=== PATIENT | female | born 1945 | race Caucasian/White ===

== ENCOUNTER 2017-04-12 11:41 | Inpatient (IN) | payer SELFPAY ==
[2017-04-12 12:13] LABS: #Eosinphils 0.1 thou/uL (0.0-0.7); #Lymphocytes 0.8 thou/uL (1.20-3.40); #Monocytes 0.6 thou/uL (0.11-0.59); #Neutrophils 14.5 thou/uL (1.40-6.50); %Basophils 0.2 % (0.0-1.0); %Eosinophils 0.5 % (0.0-10.0); %Lymphocytes 4.9 % (21.0-51.0); %Monocytes 3.7 % (0.0-10.0); Hematocrit 34.2 % (36.0-47.0); Mean Platelet Volume 5.5 fL (7.4-10.4); Red Blood Cell (RBC) Count 3.76 mill/uL (4.20-5.40)
--- NOTE | 2017-04-12 12:29 | RAD ---
CHEST ONE VIEW: HISTORY: Desaturation. COMPARISON: None. FINDINGS: Heart size is enlarged. There are opacities in both lung bases. Increased pericardial fat. Multiple foci of cement within the upper thoracic spine. No large pneumothorax. IMPRESSION: 1. Cardiomegaly with left lower lobe air space opacities, representing infection or atelectasis moiz mariola scarring. 2. Multiple areas of cement in the upper thoracic spine. POS: [facility]
[2017-04-12 12:30] LABS: ALT (SGPT) 16 U/L (8-55); AST (SGOT) 23 U/L (5-34); Alkaline Phosphatase 71 U/L (40-150); BUN (Urea Nitrogen) 11 mg/dL (9.8-20.1); Bilirubin, Total 0.6 mg/dL (0.2-1.2); CK (CPK) 72 U/L (29-168); Calc. Creatinine Clearance 0 mL/min (70-130); Estimated GFR-MDRD 78; Globulin 3.2 g/dL (2.4-3.5); Protein, Total 7.4 g/dL (6.0-8.3)
[2017-04-12 12:35] LABS: Troponin I 0.018 ng/mL (< 0.028)
[2017-04-12 12:40] LABS: Anion Gap 22 mmol/L (10-20); Carbon Dioxide 35 mmol/L (23-31); Chloride 84 mmol/L (98-107)
[2017-04-12] MEDS ORDERED: Vancomycin HCl 1 GM in Premix Bag 1 BAG IVPB SCH (13:00)
[2017-04-12 13:14] LABS: Lactic Acid - Sepsis 2.1 mmol/L (0.5-2.2)
[2017-04-12] MEDS ORDERED: Diabetic Tussin 200 MG/10 ML UDCUP PO PRN (16:44)
[2017-04-12] MEDS ORDERED: Ondansetron HCl/PF 4 MG/2 ML Vial IVP PRN (16:44)
[2017-04-12] MEDS ORDERED: Artificial Tear Sol 15 ML BOT EA EYE PRN (16:44)
[2017-04-12] MEDS ORDERED: Multivitamin W/ Minerals 1 TAB PO PRN (16:44)
[2017-04-12] MEDS ORDERED: Loperamide HCl 2 MG CAP PO PRN (16:44)
[2017-04-12] MEDS ORDERED: cloNIDine HCl 0.1 MG TAB PO PRN (16:44)
[2017-04-12] MEDS ORDERED: Zolpidem Tartrate 5 MG TAB PO PRN (16:44)
[2017-04-12] MEDS ORDERED: Ondansetron ODT 4 MG TAB PO PRN (16:44)
[2017-04-12] MEDS ORDERED: Benzonatate 100 MG CAP PO PRN (16:44)
[2017-04-12] MEDS ORDERED: Sodium Chloride 0.65% Nasal 44 ML BOT EA NARE PRN (16:44)
[2017-04-12] MEDS ORDERED: Milk Of Magnesia 30 ML UDCUP PO PRN (16:44)
[2017-04-12] MEDS ORDERED: Loratadine 10 MG TAB PO PRN (16:44)
[2017-04-12] MEDS ORDERED: Eucerin (Mineral Oil/Petrolatum,White) 30 gm Jar TOP PRN (16:44)
[2017-04-12] MEDS ORDERED: HYDROcodone/Acetaminophen 5/325 mg Tablet PO PRN (16:44)
[2017-04-12] MEDS ORDERED: Senokot 8.6 MG TAB PO PRN (16:44)
[2017-04-12] MEDS ORDERED: Sodium Chloride 0.9% 1,000 ML IV SCH (16:44)
[2017-04-12] MEDS ORDERED: Mag-Al 1200 mg/1200 mg/30 ML UDCUP PO PRN (16:44)
[2017-04-12] MEDS ORDERED: Lorazepam 1 MG TAB PO PRN (16:44)
[2017-04-12 16:46] VITALS: BMI 30.1
--- NOTE | 2017-04-12 16:55 | HP ---
PRIMARY CARE PHYSICIAN: Patient is recently moved from [facility] to the [facility] and she recently admitted appointment with Dr. Gely Malloy. REASON FOR ADMISSION: Sent from Dr. Wolff's office for hypoxic respiratory failure. HISTORY OF PRESENT ILLNESS: A 72-year-old female who has chronic respiratory failure requiring 2-3 liters of oxygen nasal cannula 14/02 as well as she has advanced chronic obstructive pulmonary diseas e, who had a regular followup visit with Dr. Wolff in Dr. Wolff's office when the patient was ta ing. At that time, her oxygen saturation was dropping below normal and that is why Dr. Wolff ad vised her to go to the emergency room for evaluation. This patient reports that after walking 15 steps, she gets out of breath. The patient also reports that whenever she do a little exertion her oxygen saturation drops, especially whenever she walks, a t that time she is not breathing through nose and her oxygen saturation drops. She is gradually get ting worse every year. The patient's granddaughter is present who also witnessed that patient's con dition is declining from last year. She was living in [facility] by herself and her condition was getting worse and that is why she has recently moved to her granddaughter's place. The patient reports that about 2-3 weeks ago, she was diagnosed with new mass in her lung and she di d not have any biopsy to be done and the patient made appointment with casting wheel operator helper to establish ca re as well as to do a lung biopsy. She does have chronic dyspnea. She does have chronic productive cough. She does have chronic physical deconditioning. Her lowest oxygen saturation today low was 62% and she was having labored breathing today and that is why Dr. Wolff advised her to go to the emergency room for evaluation. Patient denies any fever. She denies any hemoptysis. She denies any hip, chest pain, palpitation o r dizziness. She does have chronic tremor. 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 At that time, IV steroid makes her jittery and she cannot sleep. REVIEW OF SYSTEMS: The following complete review of systems was negative, unless otherwise mentione d in the HPI or below: CONSTITUTIONAL: Weight loss or gain, ability to conduct usual activities. SKIN: Rash, itching. EYES: Double vision, pain. ENT/MOUTH: Nose bleeding, neck stiffness, pain, tenderness. CARDIOVASCULAR: Palpitations, dyspnea on exertion, orthopnea. RESPIRATORY: Shortness of breath, wheezing, cough, hemoptysis, fever or night sweats. GASTROINTESTINAL: Poor appetite, abdominal pain, heartburn, nausea, vomiting, constipation, or diar sharifa. GENITOURINARY: Urgency, frequency, dysuria, nocturia. MUSCULOSKELETAL: Pain, swelling. NEUROLOGIC/PSYCHIATRIC: Anxiety, depression. ALLERGY/IMMUNOLOGIC: Skin rash, bleeding tendency. Please see my HPI for pertinent positives and negatives. All other review of system reviewed and ne gative except as mentioned in the HPI. PAST MEDICAL HISTORY: Coronary artery disease with angioplasty, end-stage COPD, steroid dependent, chronic respiratory failure on home oxygen therapy, hypertension, dyslipidemia, physical decondition ing, osteoarthritis and new diagnosis of lung mass. PAST PSYCHIATRIC HISTORY: Anxiety and depression. PAST SURGICAL HISTORY: Bladder suspension, back surgery, cataract surgery, appendicectomy. SOCIAL HISTORY: Patient is single. She was originally from [facility] and she recently moved to the [facility] with her granddaughter. She smoked about 1 pack per day for 40 y ears. She quit smoking about 9 years ago. She denies any alcohol abuse. She denies any other illi cit drug abuse. FAMILY HISTORY: No strong family history of premature coronary artery disease, stroke or cancer. ALLERGIES: PENICILLIN. CURRENT HOME MEDICATIONS: Aspirin 81 mg p.o. daily, Cardizem CD 240 mg p.o. daily, clonazepam 0.5 m g 3 times daily as needed, losartan 100 mg p.o. daily, Crestor 10 mg p.o. daily, DuoNeb as needed ba sis, hydrochlorothiazide 25 mg p.o. daily, potassium chloride 10 mEq p.o. daily, prednisone 20 mg p. o. daily, tramadol 50 mg q.6 hourly p.r.n., Advair 2 inhalation b.i.d., Flonase nasal spray daily. EMERGENCY ROOM COURSE: Patient is given vancomycin and cefepime. PHYSICAL EXAMINATION: VITAL SIGNS: On arrival, blood pressure 158/64, pulse 104, respiratory rate 26, temperature 98.4, s aturation 93% on 2 liter oxygen and 67% on room air. Weight is 70.3 kilograms. GENERAL: The patient is chronically ill, no obvious acute distress. HEAD: Normocephalic, atraumatic. EYES: Pupils round, reactive to light. Extraocular muscles intact. ENT: Oropharynx within normal limits. Moist mucous membranes. No oral lesions. No pharyngeal carlo thema, no exudates. NECK: Supple. Range of motion is normal. No meningeal signs of irritation. LUNGS: Bilateral end expiratory wheezing with coarse rales noted. CARDIAC: S1, S2 regular, systolic murmur noted. No gallop, no rub. ABDOMEN: Obesity present. Bowel sounds present. Nontender, nondistended. No organomegaly, no mas s, no suprapubic tenderness. BACK: No CVA tenderness. EXTREMITIES: Upper extremity: Passive movement of all joints are normal. Lower extremities: Bila teral lower extremity edema noted. NEUROLOGIC: Patient is moving all 4 limbs. Speech normal, no focal neurological deficit noted. Mo tor and sensation within normal limits. No cerebellar sign. SKIN: The patient does have multiple bruits. Patient has very thin skin. PSYCHIATRIC: Anxious affect. SIGNIFICANT LABS: 1. EKG based on my review, sinus tachycardia. Chest x-ray based on my review, cardiomegaly with le ft lower lobe airspace opacity consistent with infection versus atelectasis versus scaring. Patient does have multiple compression fracture of the thoracic spine. 2. CBC: WBC 16.0, hemoglobin 10.9, platelets 495 with a left shift. BMP: Sodium 136, potassium 4 .5, chloride 84, carbon dioxide 35, anion gap 22, BUN 11, creatinine 0.73, glucose 157, calcium 10.0 . Lactic acid 2.1. 3. BMP: AST 23, ALT 16, alkaline phosphatase 71. CK 72, CK-MB 3.2, troponin I 0.018. BNP 23.5, t otal protein 7.4, albumin 4.2. ASSESSMENT AND PLAN/IMPRESSION: 1. Acute on chronic respiratory failure with hypoxia with hypercarbia. At this point, we will try to keep oxygen saturation between 88-90%. We will continue with oxygen to keep that range. We will avoid high flow oxygen to prevent CO2 retention. The patient's underlying respiratory failure is r elated with end-stage chronic obstructive pulmonary disease. 2. Chronic obstructive pulmonary disease exacerbation with acute bronchitis and pneumonia. The pat ient will be treated with DuoNeb therapy q.6 hourly and as needed basis, Dulera 2 puffs inhalation b .i.d., Solu-Medrol 40 mg IV q.6 hourly, empiric antibiotic therapy with cefepime 2 grams q.12 hourly , Levaquin 500 mg IV daily. Patient has received vancomycin dose in the emergency room. We will al so continue Mucinex 600 mg twice daily. 3. Anxiety and depression. We will continue clonazepam 0.5 mg p.o. t.i.d. 4. Hypertension. Currently, patient's blood pressure runs normal. Only, we will continue Cardizem CD 240 mg p.o. daily. Rest of blood pressure medication will be on hold. 5. Left lower lobe atelectasis versus pneumonia versus scar. This patient reports that she has new scar on the left lower lobe. It is unclear whether this is a new finding or old finding, but she d oes have leukocytosis. At this point, we will treat as if pneumonia and we will consult pulmonologi st while in hospital. We will treat with cefepime and Levaquin while in hospital, Mucinex 600 mg tw ice daily. Further investigation will defer to casting wheel operator helper. 6. Anemia, normocytic, normochromic. We will continue ferrous sulfate 325 mg p.o. daily and multiv itamin 1 tablet p.o. daily. 7. Deep venous thrombosis prophylaxis. Lovenox 40 mg subQ daily. 8. Gastrointestinal prophylaxis, Protonix 40 mg p.o. daily. CODE STATUS: I spoke with the patient and patient's granddaughter at bedside in the emergency room and confirmed code status, DNR. Patient does not want any kind of heroic measures in case of cardio pulmonary arrest. I will respect her wish and we will put a DNR order in hospital. Disposition plan based on clinical course, we are expecting patient's stay in hospital more than 2 m idnights. Plan of care discussed with the patient and patient's granddaughter at bedside.
[2017-04-12] MEDS: Mometasone/Formoterol 120 PUFF INHALER INH SCH (17:59)
[2017-04-12 18:30] LABS: Bilirubin Negative (Negative); Blood, Urine Negative (Negative); Glucose, Urine (Dipstick) 250 mg/dL (Negative); Ketone, Urine Negative (Negative); Nitrite Negative (Negative); Protein, Urine (Dipstick) Negative (Neg-Trace); Urobilinogen 0.2 mg/dL (0.2-1.0)
[2017-04-12 18:32] LABS: Bacteria/HPF None Seen HPF (None Seen); Hyaline Casts/LPF 0-3 HYALINE CAST LPF (0-3 Hyaline); Squamous Epithelial None Seen HPF (0-3); WBC/HPF None Seen HPF (0-3)
[2017-04-12] MEDS: guaiFENesin ER 600 MG TAB PO SCH (20:23)
[2017-04-12] MEDS: clonazePAM 0.5 MG TAB PO SCH (20:24)
[2017-04-12] MEDS: Cefepime 2 GM in Sodium Chloride 0.9% 100 ML IVPB SCH (20:24)
[2017-04-13] MEDS: Sodium Chloride 3% (15 ML) NEB NEB SCH ×3 (03:19→19:39)
[2017-04-13 05:32] LABS: #Lymphocytes 0.5 thou/uL (1.20-3.40); #Monocytes 0.2 thou/uL (0.11-0.59); %Eosinophils 0.1 % (0.0-10.0); %Monocytes 2.1 % (0.0-10.0); Hematocrit 30.9 % (36.0-47.0); Mean Platelet Volume 5.3 fL (7.4-10.4); Red Blood Cell (RBC) Count 3.39 mill/uL (4.20-5.40); White Blood Cell (WBC) Count 8.7 thou/uL (4.8-10.8)
[2017-04-13 05:52] LABS: ALT (SGPT) 12 U/L (8-55); AST (SGOT) 15 U/L (5-34); Alkaline Phosphatase 58 U/L (40-150); Anion Gap 14 mmol/L (10-20); BUN (Urea Nitrogen) 10 mg/dL (9.8-20.1); Bilirubin, Total 0.5 mg/dL (0.2-1.2); Calc. Creatinine Clearance 89 mL/min (70-130); Calcium 9.2 mg/dL (7.8-10.44); Carbon Dioxide 36 mmol/L (23-31); Chloride 89 mmol/L (98-107); Estimated GFR-MDRD Greater than 90; Globulin 2.6 g/dL (2.4-3.5); Protein, Total 6.3 g/dL (6.0-8.3)
[2017-04-13] MEDS: Mometasone/Formoterol 120 PUFF INHALER INH SCH ×2 (06:29→19:38)
[2017-04-13] MEDS: Cefepime 2 GM in Sodium Chloride 0.9% 100 ML IVPB SCH ×2 (08:13→20:11)
[2017-04-13] MEDS: Ferrous Sulfate 325 MG TAB PO SCH (08:14)
[2017-04-13] MEDS: clonazePAM 0.5 MG TAB PO SCH ×3 (08:14→20:11)
[2017-04-13] MEDS: guaiFENesin ER 600 MG TAB PO SCH ×2 (08:14→20:11)
[2017-04-13] MEDS: Enoxaparin Sodium 30 MG/0.3 ML SYRINGE SC SCH (08:14)
[2017-04-13 09:29] LABS: Oxyhemoglobin 92.5 % (94.0-97.0); Sodium 135 mmol/L (135-148)
[2017-04-13 09:31] LABS: Mode 3LNC; Modified Allen's Test POSITIVE; Vent NO
--- NOTE | 2017-04-13 12:51 | PDOC.PN ---
- Subjective Encounter Start Date: 04/13/17 Encounter Start Time: 09:00 -: old records requested/rev Patient seen and examined. No new complaints. No overnight events, still dyspnea - Objective Resuscitation Status: Resuscitation Status DNR:Do Not Resuscitate MAR Reviewed: Yes Vital Signs & Weight: Vital Signs (12 hours) Temp Pulse Resp BP BP Pulse Ox Pulse Ox 04/13/17 11:17 97.9 F 92 24 H 106/60 96 04/13/17 09:56 98 22 H 95 04/13/17 09:54 98 22 H 95 04/13/17 08:14 91 123/75 04/13/17 08:12 83 L 04/13/17 08:00 98.2 F 91 22 H 95 04/13/17 07:33 98.2 F 91 22 H 123/75 95 04/13/17 06:31 97 04/13/17 06:29 88 20 97 04/13/17 04:07 97.8 F 103 H 20 135/61 93 L 04/13/17 03:20 93 L Pulse Ox Pulse Ox Pulse Ox 04/13/17 11:17 04/13/17 09:56 04/13/17 09:54 04/13/17 08:14 04/13/17 08:12 92 L 71 L 87 L 04/13/17 08:00 04/13/17 07:33 04/13/17 06:31 04/13/17 06:29 04/13/17 04:07 04/13/17 03:20 Weight Weight 154 lb 5.177 oz I&O: 04/12/17 04/13/17 04/14/17 06:59 06:59 06:59 Intake Total 1697 Balance 1697 Result Diagrams: 04/13/17 04:41 04/13/17 04:41 Phys Exam - Physical Examination Constitutional: NAD HEENT: PERRLA, moist MMs, sclera anicteric Neck: no JVD, supple Respiratory: no wheezing, no rhonchi scattered rales, reduced air entry Cardiovascular: RRR, no significant murmur, no rub Gastrointestinal: soft, non-tender, no distention, positive bowel sounds Musculoskeletal: no edema, pulses present Neurological: non-focal, normal sensation Psychiatric: normal affect Skin: no rash, normal turgor Dx/Plan (1) Acute on chronic respiratory failure with hypoxia and hypercapnia Code(s): J96.21 - ACUTE AND CHRONIC RESPIRATORY FAILURE WITH HYPOXIA; J96.22 - ACUTE AND CHRONIC RESPIRATORY FAILURE WITH HYPERCAPNIA Status: Acute (2) COPD (chronic obstructive pulmonary disease) Status: Acute (3) Left lower lobe pneumonia Code(s): J18.1 - LOBAR PNEUMONIA, UNSPECIFIED ORGANISM Status: Acute (4) Anemia, normocytic normochromic Code(s): D64.9 - ANEMIA, UNSPECIFIED Status: Chronic (5) Anxiety and depression Code(s): F41.8 - OTHER SPECIFIED ANXIETY DISORDERS Status: Chronic (6) Dyslipidemia Code(s): E78.5 - HYPERLIPIDEMIA, UNSPECIFIED Status: Chronic (7) Hypertension Code(s): I10 - ESSENTIAL (PRIMARY) HYPERTENSION Status: Chronic (8) Obesity (BMI 30.0-34.9) Code(s): E66.9 - OBESITY, UNSPECIFIED Status: Chronic (9) Physical deconditioning Code(s): R53.81 - OTHER MALAISE Status: Chronic (10) Dementia Code(s): F03.90 - UNSPECIFIED DEMENTIA WITHOUT BEHAVIORAL DISTURBANCE Status: Chronic - Plan cont current plan of care, plan discussed w/ family, continue antibiotics, respiratory therapy * continue cefepime and levaquin * continue solumedrol * currently on optimum therapy for copd * pulmonary following * medication reviewed as below * symptomatic treatment. Review of Systems - Review of Systems Constitutional: Weakness. negative: Fever, Chills, Sweats, Malaise, Other Respiratory: Cough, Shortness of Breath, SOB with Excertion. negative: Dry, Hemoptysis, Pleuritic Pain, Sputum, Wheezing Cardiovascular: negative: Chest Pain, Palpitations, Orthopnea, Paroxysmal Noc. Dyspnea, Edema, Light Headedness, Other Gastrointestinal: negative: Nausea, Vomiting, Abdominal Pain, Diarrhea, Constipation, Melena, Hematochezia, Other Genitourinary: negative: Dysuria, Frequency, Incontinence, Hematuria, Retention , Other Musculoskeletal: negative: Neck Pain, Shoulder Pain, Arm Pain, Back Pain, Hand Pain, Leg Pain, Foot Pain, Other Skin: negative: Rash, Lesions, Jey, Bruising, Other - Medications/Allergies Allergies/Adverse Reactions: Allergies Allergy/AdvReac Type Severity Reaction Status Date / Time Penicillins Allergy Verified 04/12/17 12:56 Medications: Current Medications Acetaminophen (Tylenol) 650 mg PO Q4H PRN PRN Reason: Headache/Fever or Pain Hydrocodone Bitart/Acetaminophen ([place] 5/325) 1 tab PO Q4H PRN PRN Reason: Moderate Pain (4-6) Al Hydroxide/Mg Hydroxide (Maalox) 30 ml PO Q6H PRN PRN Reason: Heartburn or Indigestion Albuterol/Ipratropium (Duoneb) 3 ml NEB [id number] [facility] Last Admin: 04/13/17 10:18 Dose: 3 ml Artificial Tears (Tears Renewed 15ml Bottle) 0 drop EA EYE PRN PRN PRN Reason: Dry Eyes Clonazepam (Klonopin) 0.5 mg PO TID [facility] Last Admin: 04/13/17 08:14 Dose: 0.5 mg Clonidine HCl (Catapres) 0.1 mg PO Q4H PRN PRN Reason: Systolic BP > 180 Diltiazem HCl (Cardizem Cd) 240 mg PO DAILY [facility] Last Admin: 04/13/17 08:14 Dose: 240 mg Enoxaparin Sodium (Lovenox) 30 mg SC 0900 [facility] Last Admin: 04/13/17 08:14 Dose: 30 mg Ferrous Sulfate (Feosol) 325 mg PO QAM-WM [facility] Last Admin: 04/13/17 08:14 Dose: 325 mg Guaifenesin (Mucinex) 600 mg PO Q12HR [facility] Last Admin: 04/13/17 08:14 Dose: 600 mg Hydralazine HCl (Apresoline) 10 mg SLOW IVP Q4H PRN PRN Reason: Systolic BP > 180 Cefepime HCl 2 gm/ Sodium (Chloride) 100 mls @ 200 mls/hr IVPB Q12HR [facility] Last Admin: 04/13/17 08:13 Dose: 100 mls Levofloxacin 500 mg/ Device 100 mls @ 100 mls/hr IVPB 1800 [facility] Last Admin: 04/12/17 17:20 Dose: 100 mls Iron/Minerals/Multivitamins (Theragran M) 1 tab PO DAILY PRN PRN Reason: Anxiety/Restlessness/Sleep Loperamide HCl (Imodium) 2 mg PO PRN PRN PRN Reason: Diarrhea/Loose Stools Loratadine (Claritin) 10 mg PO DAILYPRN PRN PRN Reason: Sinus Symptoms Magnesium Hydroxide (Milk Of Magnesium) 30 ml PO DAILYPRN PRN PRN Reason: Constipation Methylprednisolone Sodium Succinate (Solu-Medrol) 40 mg IVP DAILY [facility] Last Admin: 04/13/17 08:14 Dose: 40 mg Mineral Oil/White Petrolatum (Eucerin Cream) 0 gm TOP BIDPRN PRN PRN Reason: Dry Skin Mometasone Furoate/Formoterol Fumar (Dulera 200 Mcg/5 Mcg Inhaler) 2 puff INH BID-RT [facility] Last Admin: 04/13/17 06:29 Dose: 2 puff Ondansetron HCl (Zofran Odt) 4 mg PO Q6H PRN PRN Reason: Nausea/Vomiting Ondansetron HCl (Zofran) 4 mg IVP Q6H PRN PRN Reason: Nausea/Vomiting Rosuvastatin Calcium (Crestor) 10 mg PO HS [facility] Last Admin: 04/12/17 20:23 Dose: 10 mg Senna (Senokot) 2 tab PO HSPRN PRN PRN Reason: Constipation Sodium Chloride (White Shield Nasal Eleanor 0.65%) 0 ml EA NARE QIDPRN PRN PRN Reason: Nasal Congestion Sodium Chloride (Sodium Chloride 3%) 15 ml NEB BID [facility] Last Admin: 04/13/17 09:54 Dose: 15 ml
[2017-04-13] MEDS: Acetaminophen 325 MG TAB PO PRN ×2 (14:32→18:26)
[2017-04-13] MEDS ORDERED: Lidocaine 4% PF 5 ML AMP NEB SCH (20:45)
--- NOTE | 2017-04-13 23:09 | PRG ---
DATE OF SERVICE: 04/13/2017 SERVICE: Pulmonary Medicine. INTERVAL HISTORY: The patient is doing fine from a cardiovascular and respiratory standpoint. Ever since, she left the Emergency Department, she has essentially returned to normal oxygen saturation. With minimal exertion, she drops down in the upper 60s. We have been working pulmonary physical t herapy to promote physiotherapy. An ABG was performed. Tomorrow, we are going to investigate this pulmonary mass. She will likely need to remain on antibiotics for a period of roughly 7 days. That being said, I do not think she has improved to the point where she is close enough to her baseline that will be reasonable to perform a bronchoscopy looking into this lesion. Otherwise, she has no s pecific complaints of fevers, chills, nausea or vomiting. She continues to cough up green purulent sputum. This is certainly above baseline presently. PHYSICAL EXAMINATION: VITAL SIGNS: Afebrile, pulse 95, blood pressure 111/69, respirations 22, saturation 93% on 3 liters nasal cannula. GENERAL: Patient is awake, alert, in no apparent distress. LUNGS: Decreased air entry with prolonged expiratory phase, rhonchi and wheezing present. I do not appreciate any crackles presently. HEART: Normal rate, regular. ABDOMEN: Soft, nontender, nondistended. Bowel sounds positive. MUSCULOSKELETAL: No cyanosis or clubbing. No pitting in the bilateral lower extremities. NEUROLOGIC: Grossly nonfocal. LABORATORY DATA: WBC 8.7, hemoglobin 9.8, platelets 416,000. Neutrophil count is 92%. A pH 7.37, pCO2 72, pO2 of 65. This was on 3 liters nasal cannula at that time. Bicarbonate 36 in roughly at baseline. Basic metabolic profile and liver functions are otherwise unremarkable. Lactate negative x2. Cardiac enzymes and BNP are unremarkable. Urinalysis is unremarkable. Rheumatoid factor is n egative. IgG and IgM are marginally reduced. IgA is normal. Blood cultures x2 are unremarkable. IMAGING: Chest x-ray demonstrates chronic changes consistent with hyperexpansion. There is cardiom egaly with left lower lobe airspace opacifications. There is a pulmonary mass in the left lower lob e as well. There is multiple areas of cement in the thoracic spine. ASSESSMENT: 1. Acute on chronic hypoxic respiratory failure. 2. Chronic hypercapnic respiratory failure. 3. Chronic obstructive pulmonary disease with acute exacerbation. 4. Bronchiectasis with acute exacerbation. 5. Pulmonary mass. 6. Osteoporosis, likely. PLAN: We will deescalate the steroids. The patient will continue her broad spectrum IV antibiotics for the time being. A bronchoscopy will be performed tomorrow morning. After assessing the patien t more fully, it is clear that the patient suffers from chronic respiratory failure secondary to mark edwin COPD and possible restrictive lung disease associated with kyphoscoliosis. I am ordering vol ume ventilation for nocturnal and as needed daytime use for symptom management of her chronic respir atory failure. Additional home BiPAP would be completely insufficient due to the severity of her di sease process. I would like for her to get a full 7 days of antibiotics in order to optimize her br onchiectasis exacerbation while we await cultures from the bronchoscopy, and continue our physiother apy, which needs to be provided on an outpatient basis.
[2017-04-14] MEDS: Mometasone/Formoterol 120 PUFF INHALER INH SCH ×2 (06:53→19:18)
[2017-04-14] MEDS ORDERED: Fentanyl 100 MCG/2 ML VIAL ONE (08:49)
[2017-04-14] MEDS: Cefepime 2 GM in Sodium Chloride 0.9% 100 ML IVPB SCH ×2 (09:28→21:01)
[2017-04-14] MEDS ORDERED: Ondansetron HCl/PF 4 MG/2 ML Vial ONE (09:31)
[2017-04-14] MEDS ORDERED: Lidocaine 1% PF 5 ML VIAL ONE (09:31)
[2017-04-14] MEDS ORDERED: Propofol 200 MG/20 ML VIAL ONE (09:31)
[2017-04-14] MEDS ORDERED: Succinylcholine Chloride 20 MG/ML 10 ml SYRINGE FS ONE (09:31)
[2017-04-14] MEDS ORDERED: Promethazine HCl 25 MG/ML VIAL SLOW IVP PRN (10:21)
[2017-04-14 10:29] LABS: BF Reference Range Comment Note:
--- NOTE | 2017-04-14 10:39 | PDOC.PN ---
- Subjective Encounter Start Date: 04/14/17 Encounter Start Time: 12:44 Patient seen and examined. No new complaints. No overnight events - Objective Resuscitation Status: Resuscitation Status DNR:Do Not Resuscitate MAR Reviewed: Yes Vital Signs & Weight: Vital Signs (12 hours) Temp Pulse Resp BP Pulse Ox 04/14/17 08:00 97.9 F 92 22 H 100 04/14/17 07:23 97.9 F 92 22 H 133/74 100 04/14/17 06:54 101 H 24 H 91 L 04/14/17 04:37 98.2 F 83 18 129/74 95 04/14/17 01:00 97.8 F 79 18 121/73 96 04/14/17 00:55 88 22 H 94 L Weight Weight 154 lb 5.177 oz I&O: 04/13/17 04/14/17 04/15/17 06:59 06:59 06:59 Intake Total 1697 1707 Balance 1697 1707 Result Diagrams: 04/13/17 04:41 04/13/17 04:41 Phys Exam - Physical Examination Constitutional: NAD HEENT: PERRLA, moist MMs, sclera anicteric Neck: no JVD, supple Respiratory: no rales, wheezing present Cardiovascular: RRR, no significant murmur, no rub Gastrointestinal: soft, non-tender, no distention, positive bowel sounds Musculoskeletal: no edema, pulses present Neurological: non-focal, normal sensation Psychiatric: normal affect Skin: no rash, normal turgor Dx/Plan (1) Acute on chronic respiratory failure with hypoxia and hypercapnia Code(s): J96.21 - ACUTE AND CHRONIC RESPIRATORY FAILURE WITH HYPOXIA; J96.22 - ACUTE AND CHRONIC RESPIRATORY FAILURE WITH HYPERCAPNIA Status: Acute (2) COPD (chronic obstructive pulmonary disease) Status: Acute (3) Left lower lobe pneumonia Code(s): J18.1 - LOBAR PNEUMONIA, UNSPECIFIED ORGANISM Status: Acute (4) Anemia, normocytic normochromic Code(s): D64.9 - ANEMIA, UNSPECIFIED Status: Chronic (5) Anxiety and depression Code(s): F41.8 - OTHER SPECIFIED ANXIETY DISORDERS Status: Chronic (6) Dyslipidemia Code(s): E78.5 - HYPERLIPIDEMIA, UNSPECIFIED Status: Chronic (7) Hypertension Code(s): I10 - ESSENTIAL (PRIMARY) HYPERTENSION Status: Chronic (8) Obesity (BMI 30.0-34.9) Code(s): E66.9 - OBESITY, UNSPECIFIED Status: Chronic (9) Physical deconditioning Code(s): R53.81 - OTHER MALAISE Status: Chronic (10) Dementia Code(s): F03.90 - UNSPECIFIED DEMENTIA WITHOUT BEHAVIORAL DISTURBANCE Status: Chronic (11) Pulmonary mass Code(s): R91.8 - OTHER NONSPECIFIC ABNORMAL FINDING OF LUNG FIELD Status: Acute (12) Kyphoscoliosis Code(s): M41.9 - SCOLIOSIS, UNSPECIFIED Status: Chronic (13) Osteoporosis Code(s): M81.0 - AGE-RELATED OSTEOPOROSIS W/O CURRENT PATHOLOGICAL FRACTURE Status: Chronic - Plan cont current plan of care, continue antibiotics, respiratory therapy * continue cefepime, levaquin * continue current optimum medical therapy for COPD * today plan for bronchoscopy * social work to arrange nocturnal vent * medication reviewed as below * symptomatic treatment. Review of Systems - Review of Systems ENT: Throat Pain. negative: Ear Pain, Ear Discharge, Nose Pain, Nose Discharge , Nose Congestion, Mouth Pain, Mouth Swelling, Throat Swelling, Other Respiratory: Cough, Shortness of Breath, SOB with Excertion. negative: Dry, Hemoptysis, Pleuritic Pain, Sputum, Wheezing Cardiovascular: negative: Chest Pain, Palpitations, Orthopnea, Paroxysmal Noc. Dyspnea, Edema, Light Headedness, Other Gastrointestinal: negative: Nausea, Vomiting, Abdominal Pain, Diarrhea, Constipation, Melena, Hematochezia, Other Genitourinary: negative: Dysuria, Frequency, Incontinence, Hematuria, Retention , Other Musculoskeletal: negative: Neck Pain, Shoulder Pain, Arm Pain, Back Pain, Hand Pain, Leg Pain, Foot Pain, Other - Medications/Allergies Allergies/Adverse Reactions: Allergies Allergy/AdvReac Type Severity Reaction Status Date / Time Penicillins Allergy Verified 04/12/17 12:56 Medications: Current Medications Acetaminophen (Tylenol) 650 mg PO Q4H PRN PRN Reason: Headache/Fever or Pain Last Admin: 04/13/17 18:26 Dose: 650 mg Hydrocodone Bitart/Acetaminophen ([place] 5/325) 1 tab PO Q4H PRN PRN Reason: Moderate Pain (4-6) Al Hydroxide/Mg Hydroxide (Maalox) 30 ml PO Q6H PRN PRN Reason: Heartburn or Indigestion Albuterol/Ipratropium (Duoneb) 3 ml NEB [id number] [facility] Last Admin: 04/14/17 06:54 Dose: 3 ml Albuterol/Ipratropium (Duoneb) 3 ml NEB WILLCALL [facility] Stop: 04/14/17 20:46 Albuterol/Ipratropium (Duoneb) 3 ml NEB ONE [facility] Artificial Tears (Tears Renewed 15ml Bottle) 0 drop EA EYE PRN PRN PRN Reason: Dry Eyes Clonazepam (Klonopin) 0.5 mg PO TID [facility] Last Admin: 04/13/17 20:11 Dose: 0.5 mg Clonidine HCl (Catapres) 0.1 mg PO Q4H PRN PRN Reason: Systolic BP > 180 Diltiazem HCl (Cardizem Cd) 240 mg PO DAILY [facility] Last Admin: 04/13/17 08:14 Dose: 240 mg Enoxaparin Sodium (Lovenox) 30 mg SC 0900 [facility] Last Admin: 04/13/17 08:14 Dose: 30 mg Fentanyl (Pacu-Sublimaze) 50 mcg SLOW IVP Q10MIN PRN PRN Reason: Moderate to Severe Pain (6-10) Stop: 04/14/17 13:21 Ferrous Sulfate (Feosol) 325 mg PO QAM-WM [facility] Last Admin: 04/13/17 08:14 Dose: 325 mg Guaifenesin (Mucinex) 600 mg PO Q12HR [facility] Last Admin: 04/13/17 20:11 Dose: 600 mg Hydralazine HCl (Apresoline) 10 mg SLOW IVP Q4H PRN PRN Reason: Systolic BP > 180 Cefepime HCl 2 gm/ Sodium (Chloride) 100 mls @ 200 mls/hr IVPB Q12HR [facility] Last Admin: 04/13/17 20:11 Dose: 100 mls Levofloxacin 500 mg/ Device 100 mls @ 100 mls/hr IVPB 1800 [facility] Last Admin: 04/13/17 17:29 Dose: 100 mls Iron/Minerals/Multivitamins (Theragran M) 1 tab PO DAILY PRN PRN Reason: Anxiety/Restlessness/Sleep Lidocaine HCl (Xylocaine 4% Pf) 5 ml NEB WILLCALL [facility] Stop: 04/14/17 20:46 Loperamide HCl (Imodium) 2 mg PO PRN PRN PRN Reason: Diarrhea/Loose Stools Loratadine (Claritin) 10 mg PO DAILYPRN PRN PRN Reason: Sinus Symptoms Magnesium Hydroxide (Milk Of Magnesium) 30 ml PO DAILYPRN PRN PRN Reason: Constipation Methylprednisolone Sodium Succinate (Solu-Medrol) 40 mg IVP DAILY [facility] Last Admin: 04/13/17 08:14 Dose: 40 mg Mineral Oil/White Petrolatum (Eucerin Cream) 0 gm TOP BIDPRN PRN PRN Reason: Dry Skin Mometasone Furoate/Formoterol Fumar (Dulera 200 Mcg/5 Mcg Inhaler) 2 puff INH BID-RT [facility] Last Admin: 04/14/17 06:53 Dose: 2 puff Ondansetron HCl (Zofran Odt) 4 mg PO Q6H PRN PRN Reason: Nausea/Vomiting Ondansetron HCl (Zofran) 4 mg IVP Q6H PRN PRN Reason: Nausea/Vomiting Promethazine HCl (Pacu-Phenergan) 6.25 mg SLOW IVP ONE PRN PRN Reason: Nausea/Vomiting Stop: 04/14/17 13:21 Rosuvastatin Calcium (Crestor) 10 mg PO HS [facility] Last Admin: 04/13/17 20:11 Dose: 10 mg Senna (Senokot) 2 tab PO HSPRN PRN PRN Reason: Constipation Sodium Chloride ([place] Nasal [place] 0.65%) 0 ml EA NARE QIDPRN PRN PRN Reason: Nasal Congestion Sodium Chloride (Sodium Chloride 3%) 15 ml NEB BID [facility] Last Admin: 04/13/17 19:39 Dose: 15 ml
[2017-04-14] MEDS: Sodium Chloride 3% (15 ML) NEB NEB SCH ×2 (10:49→19:18)
--- NOTE | 2017-04-14 11:10 | PRG ---
DATE OF SERVICE: 04/14/2017 SERVICE: Pulmonary Medicine. INTERVAL HISTORY: The patient is doing fine from a cardiovascular and respiratory standpoint. She actually likes the physiotherapy. It is causing her cough quite a bit, but she does not get anythin g up at this time. PHYSICAL EXAMINATION: VITAL SIGNS: Afebrile, pulse 92, blood pressure 133/74, respirations 22, saturation 100% on 3 liter s nasal cannula. GENERAL: Patient is awake, alert, in no apparent distress. LUNGS: Actually much improved air entry. There is a few rhonchi present, but expiratory wheezing i s still present polyphonic. HEART: Normal rate, regular. ABDOMEN: Soft, nontender, nondistended. Bowel sounds positive. MUSCULOSKELETAL: No cyanosis or clubbing. No pitting in the bilateral lower extremities. NEUROLOGIC: Grossly nonfocal. ASSESSMENT: 1. Chronic hypercapnic respiratory failure. 2. Acute on chronic hypoxic respiratory failure. 3. Chronic obstructive pulmonary disease with acute exacerbation. 4. Bronchiectasis with acute exacerbation. 5. Pulmonary mass. 6. Osteoporosis. PLAN: We will continue our physiotherapy. Antibiotics will be continued for a total duration of 7 days. At that point, we can deescalate based on culture results sooner if needed. We will proceed with bronchoscopy in order to attempt to get a sample of this lesion. We talk to her about risks an d benefits of pursuing transcutaneous biopsy of this lesion in the future. My suspicion is she woul d not be able to tolerate lobectomy. At this point, Pulmonary will continue to follow on a daily ba sis and we will see about setting her up with home ventilator. Multiple studies are continued to pe nd.
[2017-04-14 11:51] LABS: BF Color Pink
[2017-04-14 11:55] LABS: BF WBC/Nonhematics Ct. - Manua 150 /cumm
[2017-04-14] MEDS: clonazePAM 0.5 MG TAB PO SCH ×3 (12:29→21:01)
[2017-04-14] MEDS: guaiFENesin ER 600 MG TAB PO SCH ×2 (12:43→21:01)
[2017-04-14] MEDS: Ferrous Sulfate 325 MG TAB PO SCH (12:44)
[2017-04-14] MEDS: Enoxaparin Sodium 30 MG/0.3 ML SYRINGE SC SCH (12:45)
--- NOTE | 2017-04-14 13:54 | OP ---
DATE OF SERVICE: 04/14/2017 PROCEDURE: Fiberoptic bronchoscopy with: 1. Visual airway inspection. 2. Endobronchial brush from the left lower lobe. 3. Bronchioalveolar lavage from left lower lobe. 4. Transbronchial biopsies from the left lower lobe. PREPROCEDURE DIAGNOSES: 1. Pulmonary mass. 2. Bronchiectasis with acute exacerbation. POSTPROCEDURE DIAGNOSES: 1. Pulmonary mass. 2. Bronchiectasis with acute exacerbation. PROCEDURE PHOTOGRAPH ENLARGER: Rodrigo Wolff M.D. MEDICATIONS USED: For a list of medicines used during this procedure, please refer to Anesthesia's documentation. PREANESTHESIA ASSESSMENT: H and P had been performed. The patient's medications and allergies were reviewed. Informed consent was obtained after discussing the risks, benefits, and rationale for pe rforming the procedure as well as alternative options. DESCRIPTION OF PROCEDURE: A timeout was performed, identifying the correct procedure and patient wi th name and date of . A diagnostic fiberoptic bronchoscope was introduced through the endotrac heal tube. A tracheobronchial tree inspection was carried out with clear identification of the righ t upper lobe, right middle lobe, right lower lobe, left upper lobe, lingula, and left lower lobe. A natomy was normal to the segmental level. There was an endobronchial lesion in the right upper lobe , which was not biopsied. Bronchioalveolar lavage was obtained from the left lower lobe. Endobronc hial brushings and transbronchial biopsies were obtained from the left lower lobe, under fluoroscopi c guidance. Hemostasis was verified and the bronchoscope was subsequently removed from the patient. Post-procedure fluoroscopy did not demonstrate a pneumothorax. FINDINGS: 1. Right upper lobe endobronchial disease was identified, but a biopsy was not taken here. 2. Secretions were thick and purulent, but mild. SPECIMENS OBTAINED: 1. Bronchial washing for Gram stain and culture as well as other microbiology studies. 2. BAL for cytology. 3. Transbronchial biopsies and brushing for pathology. COMPLICATIONS: None. ESTIMATED BLOOD LOSS: 10 mL FLUOROSCOPY TIME: 2 minutes. DISPOSITION: The patient will recover in the postanesthesia care unit. We will take her to extubat e her once she is fully awake.
[2017-04-15] MEDS: Acetaminophen 325 MG TAB PO PRN ×2 (00:16→22:36)
[2017-04-15] MEDS: Ferrous Sulfate 325 MG TAB PO SCH (09:16)
[2017-04-15] MEDS: guaiFENesin ER 600 MG TAB PO SCH ×2 (09:17→20:51)
[2017-04-15] MEDS: clonazePAM 0.5 MG TAB PO SCH ×3 (09:17→20:50)
[2017-04-15] MEDS: Sodium Chloride 3% (15 ML) NEB NEB SCH ×2 (09:35→19:41)
[2017-04-15] MEDS: Mometasone/Formoterol 120 PUFF INHALER INH SCH ×2 (10:25→19:40)
--- NOTE | 2017-04-15 10:54 | PDOC.PN ---
- Subjective Encounter Start Date: 04/15/17 Encounter Start Time: 09:20 Patient seen and examined. No new complaints. No overnight events - Objective Resuscitation Status: Resuscitation Status DNR:Do Not Resuscitate MAR Reviewed: Yes Vital Signs & Weight: Vital Signs (12 hours) Temp Pulse Resp BP Pulse Ox 04/15/17 10:25 108 H 28 H 94 L 04/15/17 09:35 108 H 28 H 94 L 04/15/17 09:32 108 H 28 H 94 L 04/15/17 09:25 108 H 28 H 94 L 04/15/17 08:00 98.1 F 111 H 24 H 136/71 95 04/15/17 00:29 79 20 97 04/15/17 00:09 98.4 F 94 22 H 133/70 93 L Weight Weight 154 lb 5.177 oz I&O: 04/14/17 04/15/17 04/16/17 06:59 06:59 06:59 Intake Total 1707 1367 Balance 1707 1367 Result Diagrams: 04/13/17 04:41 04/13/17 04:41 Phys Exam - Physical Examination Constitutional: NAD HEENT: PERRLA, moist MMs, sclera anicteric Neck: no JVD, supple Respiratory: no wheezing, no rales, no rhonchi Cardiovascular: RRR, no significant murmur, no rub Gastrointestinal: soft, non-tender, no distention, positive bowel sounds Musculoskeletal: no edema, pulses present Neurological: non-focal, normal sensation Psychiatric: normal affect Skin: no rash, normal turgor Dx/Plan (1) Acute on chronic respiratory failure with hypoxia and hypercapnia Code(s): J96.21 - ACUTE AND CHRONIC RESPIRATORY FAILURE WITH HYPOXIA; J96.22 - ACUTE AND CHRONIC RESPIRATORY FAILURE WITH HYPERCAPNIA Status: Acute (2) COPD (chronic obstructive pulmonary disease) Status: Acute (3) Left lower lobe pneumonia Code(s): J18.1 - LOBAR PNEUMONIA, UNSPECIFIED ORGANISM Status: Acute (4) Anemia, normocytic normochromic Code(s): D64.9 - ANEMIA, UNSPECIFIED Status: Chronic (5) Anxiety and depression Code(s): F41.8 - OTHER SPECIFIED ANXIETY DISORDERS Status: Chronic (6) Dyslipidemia Code(s): E78.5 - HYPERLIPIDEMIA, UNSPECIFIED Status: Chronic (7) Hypertension Code(s): I10 - ESSENTIAL (PRIMARY) HYPERTENSION Status: Chronic (8) Obesity (BMI 30.0-34.9) Code(s): E66.9 - OBESITY, UNSPECIFIED Status: Chronic (9) Physical deconditioning Code(s): R53.81 - OTHER MALAISE Status: Chronic (10) Dementia Code(s): F03.90 - UNSPECIFIED DEMENTIA WITHOUT BEHAVIORAL DISTURBANCE Status: Chronic (11) Pulmonary mass Code(s): R91.8 - OTHER NONSPECIFIC ABNORMAL FINDING OF LUNG FIELD Status: Acute (12) Kyphoscoliosis Code(s): M41.9 - SCOLIOSIS, UNSPECIFIED Status: Chronic (13) Osteoporosis Code(s): M81.0 - AGE-RELATED OSTEOPOROSIS W/O CURRENT PATHOLOGICAL FRACTURE Status: Chronic - Plan cont current plan of care, continue antibiotics, PT/OT, outreach and education social worker, respiratory therapy * continue current optimum medical therapy for COPD * slowly improving but needs more time * medication reviewed as below * symptomatic treatment.. Review of Systems - Review of Systems ENT: negative: Ear Pain, Ear Discharge, Nose Pain, Nose Discharge, Nose Congestion, Mouth Pain, Mouth Swelling, Throat Pain, Throat Swelling, Other Respiratory: Cough. negative: Dry, Shortness of Breath, Hemoptysis, SOB with Excertion, Pleuritic Pain, Sputum, Wheezing Cardiovascular: negative: Chest Pain, Palpitations, Orthopnea, Paroxysmal Noc. Dyspnea, Edema, Light Headedness, Other Gastrointestinal: negative: Nausea, Vomiting, Abdominal Pain, Diarrhea, Constipation, Melena, Hematochezia, Other Genitourinary: negative: Dysuria, Frequency, Incontinence, Hematuria, Retention , Other Musculoskeletal: negative: Neck Pain, Shoulder Pain, Arm Pain, Back Pain, Hand Pain, Leg Pain, Foot Pain, Other - Medications/Allergies Allergies/Adverse Reactions: Allergies Allergy/AdvReac Type Severity Reaction Status Date / Time Penicillins Allergy Verified 04/12/17 12:56 Medications: Current Medications Acetaminophen (Tylenol) 650 mg PO Q4H PRN PRN Reason: Headache/Fever or Pain Last Admin: 04/15/17 00:16 Dose: 650 mg Hydrocodone Bitart/Acetaminophen ([place] 5/325) 1 tab PO Q4H PRN PRN Reason: Moderate Pain (4-6) Al Hydroxide/Mg Hydroxide (Maalox) 30 ml PO Q6H PRN PRN Reason: Heartburn or Indigestion Albuterol/Ipratropium (Duoneb) 3 ml NEB [id number] [facility] Last Admin: 04/15/17 09:25 Dose: 3 ml Artificial Tears (Tears Renewed 15ml Bottle) 0 drop EA EYE PRN PRN PRN Reason: Dry Eyes Clonazepam (Klonopin) 0.5 mg PO TID [facility] Last Admin: 04/15/17 09:17 Dose: 0.5 mg Clonidine HCl (Catapres) 0.1 mg PO Q4H PRN PRN Reason: Systolic BP > 180 Diltiazem HCl (Cardizem Cd) 240 mg PO DAILY [facility] Last Admin: 04/14/17 12:43 Dose: 240 mg Enoxaparin Sodium (Lovenox) 30 mg SC 0900 [facility] Last Admin: 04/14/17 12:45 Dose: 30 mg Ferrous Sulfate (Feosol) 325 mg PO QAM-WM [facility] Last Admin: 04/15/17 09:16 Dose: 325 mg Guaifenesin (Mucinex) 600 mg PO Q12HR [facility] Last Admin: 04/15/17 09:17 Dose: 600 mg Hydralazine HCl (Apresoline) 10 mg SLOW IVP Q4H PRN PRN Reason: Systolic BP > 180 Cefepime HCl 2 gm/ Sodium (Chloride) 100 mls @ 200 mls/hr IVPB Q12HR [facility] Last Admin: 04/14/17 21:01 Dose: 100 mls Levofloxacin 500 mg/ Device 100 mls @ 100 mls/hr IVPB 1800 [facility] Last Admin: 04/14/17 16:56 Dose: 100 mls Iron/Minerals/Multivitamins (Theragran M) 1 tab PO DAILY PRN PRN Reason: Anxiety/Restlessness/Sleep Loperamide HCl (Imodium) 2 mg PO PRN PRN PRN Reason: Diarrhea/Loose Stools Loratadine (Claritin) 10 mg PO DAILYPRN PRN PRN Reason: Sinus Symptoms Magnesium Hydroxide (Milk Of Magnesium) 30 ml PO DAILYPRN PRN PRN Reason: Constipation Methylprednisolone Sodium Succinate (Solu-Medrol) 40 mg IVP DAILY [facility] Last Admin: 04/15/17 09:20 Dose: 40 mg Mineral Oil/White Petrolatum (Eucerin Cream) 0 gm TOP BIDPRN PRN PRN Reason: Dry Skin Mometasone Furoate/Formoterol Fumar (Dulera 200 Mcg/5 Mcg Inhaler) 2 puff INH BID-RT [facility] Last Admin: 04/15/17 10:25 Dose: 2 puff Ondansetron HCl (Zofran Odt) 4 mg PO Q6H PRN PRN Reason: Nausea/Vomiting Ondansetron HCl (Zofran) 4 mg IVP Q6H PRN PRN Reason: Nausea/Vomiting Rosuvastatin Calcium (Crestor) 10 mg PO HS [facility] Last Admin: 04/14/17 21:01 Dose: 10 mg Senna (Senokot) 2 tab PO HSPRN PRN PRN Reason: Constipation Sodium Chloride ([place] Nasal [place] 0.65%) 0 ml EA NARE QIDPRN PRN PRN Reason: Nasal Congestion Sodium Chloride (Sodium Chloride 3%) 15 ml NEB BID [facility] Last Admin: 04/15/17 09:35 Dose: 15 ml
[2017-04-15] MEDS: Cefepime 2 GM in Sodium Chloride 0.9% 100 ML IVPB SCH ×2 (12:56→20:51)
[2017-04-15] MEDS: Enoxaparin Sodium 30 MG/0.3 ML SYRINGE SC SCH (13:02)
--- NOTE | 2017-04-15 17:05 | PRG ---
DATE OF SERVICE: 04/15/2017 SERVICE: Pulmonary Medicine. INTERVAL HISTORY: The patient is doing really well from a cardiovascular and respiratory standpoint . She has tolerated the bronchoscopy well yesterday. She has yet to really be too mobile. That be ing said, she is returning to her usual state of health. She is prepared for being setup with nonin vasive ventilation on discharge from the hospital. Otherwise, there has been no interval change to her condition. PHYSICAL EXAMINATION: VITAL SIGNS: Afebrile, pulse 96, blood pressure 119/70, respirations 20, saturation 97% on 3 liters nasal cannula. GENERAL: Patient is awake, alert, no apparent distress. LUNGS: Reduced air entry with prolonged expiratory phase and rhonchi. Expiratory wheezing is prese nt. No crackles. HEART: Normal rate, regular. ABDOMEN: Soft, nontender, nondistended. Bowel sounds positive. MUSCULOSKELETAL: No cyanosis or clubbing. No pitting in the bilateral lower extremities. NEUROLOGIC: Grossly nonfocal. LABORATORY DATA: There are 150 white blood cells and 680 red blood cells per high power field on th e bronchoscopy. For some reason, the differential was discontinued. Respiratory culture is growing rare yeast with rare epithelial cells and moderate white blood cells. There is normal respiratory saira present in 24 hours. Blood cultures x2 are unremarkable. CYTOLOGY: 1. Bronchial brushings and washings were negative for any significant malignant cells. 2. Transbronchial biopsies were unremarkable for any malignant cells. There were significant acute inflammatory changes and no granulomas identified. There is focal fibrosis and inflammation presen t. ASSESSMENT: 1. Chronic hypercapnic respiratory failure. 2. Acute on chronic hypoxic respiratory failure. 3. Chronic obstructive pulmonary disease with acute exacerbation. 4. Bronchiectasis exacerbation. 5. Pulmonary mass. 6. Osteoporosis. PLAN: The patient will remain in the hospital through the weekend. We will consider discharging on Tuesday or Tuesday of next week if all goes well. She will be setup with noninvasive ventilation on discharge from the hospital. I do not trust my transbronchial biopsies and it is more likely that I just simply miss the area of concern. We will discuss whether or not to pursue transcutaneous bio psy of this lesion in the outpatient setting. Ultimately, she will follow up with me in the outpati ent setting in 1-2 weeks after dismissal from the hospital. Pulmonary will continue to follow while she remains in-house. Of note, we will get physical therapy involved. She will get into the chair 3 times a day. No isolation precautions are required as the patient does not have any lesions that are really characteristic of AFB infection.
[2017-04-15 17:12] LABS: ANCA Pattern <1:20 titer (Neg:<1:20); ANCA Total <1:20 titer (Neg:<1:20); Myeloperoxidase AutoAbs <9.0 U/mL (0.0-9.0); Proteinase-3 AutoAbs Less than 3.5 U/mL (0.0-3.5)
[2017-04-16] MEDS: Sodium Chloride 3% (15 ML) NEB NEB SCH ×2 (07:40→19:51)
[2017-04-16] MEDS: Mometasone/Formoterol 120 PUFF INHALER INH SCH ×2 (07:54→19:50)
[2017-04-16] MEDS: clonazePAM 0.5 MG TAB PO SCH ×3 (09:00→21:01)
[2017-04-16] MEDS: guaiFENesin ER 600 MG TAB PO SCH ×2 (09:01→21:01)
[2017-04-16] MEDS: Ferrous Sulfate 325 MG TAB PO SCH (09:01)
[2017-04-16] MEDS: Enoxaparin Sodium 30 MG/0.3 ML SYRINGE SC SCH (09:02)
[2017-04-16] MEDS: Cefepime 2 GM in Sodium Chloride 0.9% 100 ML IVPB SCH ×2 (10:43→21:00)
--- NOTE | 2017-04-16 12:06 | PDOC.PN ---
- Subjective Encounter Start Date: 04/16/17 Encounter Start Time: 09:00 Patient seen and examined. No new complaints. No overnight events - Objective Resuscitation Status: Resuscitation Status DNR:Do Not Resuscitate MAR Reviewed: Yes Vital Signs & Weight: Vital Signs (12 hours) Temp Pulse Resp BP BP Pulse Ox 04/16/17 08:59 83 129/73 04/16/17 08:00 98 F 85 24 H 137/65 92 L 04/16/17 07:54 83 16 04/16/17 07:53 98 04/16/17 07:40 83 16 04/16/17 07:33 83 16 04/16/17 00:25 98 20 96 Weight Weight 154 lb 5.177 oz I&O: 04/15/17 04/16/17 04/17/17 06:59 06:59 06:59 Intake Total 1367 510 480 Balance 1367 510 480 Result Diagrams: 04/13/17 04:41 04/13/17 04:41 Phys Exam - Physical Examination Constitutional: NAD HEENT: PERRLA, moist MMs, sclera anicteric Neck: no JVD, supple Respiratory: no wheezing, no rales, no rhonchi reduced air entry Cardiovascular: RRR, no significant murmur, no rub Gastrointestinal: soft, non-tender, no distention, positive bowel sounds Musculoskeletal: no edema, pulses present Neurological: non-focal, normal sensation Psychiatric: normal affect Skin: no rash, normal turgor Dx/Plan (1) Acute on chronic respiratory failure with hypoxia and hypercapnia Code(s): J96.21 - ACUTE AND CHRONIC RESPIRATORY FAILURE WITH HYPOXIA; J96.22 - ACUTE AND CHRONIC RESPIRATORY FAILURE WITH HYPERCAPNIA Status: Acute (2) COPD (chronic obstructive pulmonary disease) Status: Acute (3) Left lower lobe pneumonia Code(s): J18.1 - LOBAR PNEUMONIA, UNSPECIFIED ORGANISM Status: Acute (4) Anemia, normocytic normochromic Code(s): D64.9 - ANEMIA, UNSPECIFIED Status: Chronic (5) Anxiety and depression Code(s): F41.8 - OTHER SPECIFIED ANXIETY DISORDERS Status: Chronic (6) Dyslipidemia Code(s): E78.5 - HYPERLIPIDEMIA, UNSPECIFIED Status: Chronic (7) Hypertension Code(s): I10 - ESSENTIAL (PRIMARY) HYPERTENSION Status: Chronic (8) Obesity (BMI 30.0-34.9) Code(s): E66.9 - OBESITY, UNSPECIFIED Status: Chronic (9) Physical deconditioning Code(s): R53.81 - OTHER MALAISE Status: Chronic (10) Dementia Code(s): F03.90 - UNSPECIFIED DEMENTIA WITHOUT BEHAVIORAL DISTURBANCE Status: Chronic (11) Pulmonary mass Code(s): R91.8 - OTHER NONSPECIFIC ABNORMAL FINDING OF LUNG FIELD Status: Acute (12) Kyphoscoliosis Code(s): M41.9 - SCOLIOSIS, UNSPECIFIED Status: Chronic (13) Osteoporosis Code(s): M81.0 - AGE-RELATED OSTEOPOROSIS W/O CURRENT PATHOLOGICAL FRACTURE Status: Chronic - Plan cont current plan of care, continue antibiotics, respiratory therapy * continue empiric cefepime and levaquin * follow pathology report * continue PT * expecting discharge in 24-48 hours * medication reviewed as below * symptomatic treatment.. Review of Systems - Review of Systems ENT: negative: Ear Pain, Ear Discharge, Nose Pain, Nose Discharge, Nose Congestion, Mouth Pain, Mouth Swelling, Throat Pain, Throat Swelling, Other Respiratory: negative: Cough, Dry, Shortness of Breath, Hemoptysis, SOB with Excertion, Pleuritic Pain, Sputum, Wheezing Cardiovascular: negative: Chest Pain, Palpitations, Orthopnea, Paroxysmal Noc. Dyspnea, Edema, Light Headedness, Other Gastrointestinal: negative: Nausea, Vomiting, Abdominal Pain, Diarrhea, Constipation, Melena, Hematochezia, Other Genitourinary: negative: Dysuria, Frequency, Incontinence, Hematuria, Retention , Other Musculoskeletal: negative: Neck Pain, Shoulder Pain, Arm Pain, Back Pain, Hand Pain, Leg Pain, Foot Pain, Other - Medications/Allergies Allergies/Adverse Reactions: Allergies Allergy/AdvReac Type Severity Reaction Status Date / Time Penicillins Allergy Verified 04/12/17 12:56 Medications: Current Medications Acetaminophen (Tylenol) 650 mg PO Q4H PRN PRN Reason: Headache/Fever or Pain Last Admin: 04/15/17 22:36 Dose: 650 mg Hydrocodone Bitart/Acetaminophen ([place] 5/325) 1 tab PO Q4H PRN PRN Reason: Moderate Pain (4-6) Al Hydroxide/Mg Hydroxide (Maalox) 30 ml PO Q6H PRN PRN Reason: Heartburn or Indigestion Last Admin: 04/15/17 22:36 Dose: 30 ml Albuterol/Ipratropium (Duoneb) 3 ml NEB [id number] [facility] Last Admin: 04/16/17 07:33 Dose: 3 ml Artificial Tears (Tears Renewed 15ml Bottle) 0 drop EA EYE PRN PRN PRN Reason: Dry Eyes Clonazepam (Klonopin) 0.5 mg PO TID [facility] Last Admin: 04/16/17 09:00 Dose: 0.5 mg Clonidine HCl (Catapres) 0.1 mg PO Q4H PRN PRN Reason: Systolic BP > 180 Diltiazem HCl (Cardizem Cd) 240 mg PO DAILY [facility] Last Admin: 04/16/17 08:59 Dose: 240 mg Enoxaparin Sodium (Lovenox) 30 mg SC 0900 [facility] Last Admin: 04/16/17 09:02 Dose: 30 mg Ferrous Sulfate (Feosol) 325 mg PO QAM-WM [facility] Last Admin: 04/16/17 09:01 Dose: 325 mg Guaifenesin (Mucinex) 600 mg PO Q12HR [facility] Last Admin: 04/16/17 09:01 Dose: 600 mg Hydralazine HCl (Apresoline) 10 mg SLOW IVP Q4H PRN PRN Reason: Systolic BP > 180 Cefepime HCl 2 gm/ Sodium (Chloride) 100 mls @ 200 mls/hr IVPB Q12HR [facility] Last Admin: 04/16/17 10:43 Dose: 100 mls Levofloxacin 500 mg/ Device 100 mls @ 100 mls/hr IVPB 1800 [facility] Last Admin: 04/15/17 18:01 Dose: 100 mls Iron/Minerals/Multivitamins (Theragran M) 1 tab PO DAILY PRN PRN Reason: Anxiety/Restlessness/Sleep Loperamide HCl (Imodium) 2 mg PO PRN PRN PRN Reason: Diarrhea/Loose Stools Loratadine (Claritin) 10 mg PO DAILYPRN PRN PRN Reason: Sinus Symptoms Magnesium Hydroxide (Milk Of Magnesium) 30 ml PO DAILYPRN PRN PRN Reason: Constipation Methylprednisolone Sodium Succinate (Solu-Medrol) 40 mg IVP DAILY [facility] Last Admin: 04/16/17 09:00 Dose: 40 mg Mineral Oil/White Petrolatum (Eucerin Cream) 0 gm TOP BIDPRN PRN PRN Reason: Dry Skin Mometasone Furoate/Formoterol Fumar (Dulera 200 Mcg/5 Mcg Inhaler) 2 puff INH BID-RT [facility] Last Admin: 04/16/17 07:54 Dose: 2 puff Ondansetron HCl (Zofran Odt) 4 mg PO Q6H PRN PRN Reason: Nausea/Vomiting Ondansetron HCl (Zofran) 4 mg IVP Q6H PRN PRN Reason: Nausea/Vomiting Rosuvastatin Calcium (Crestor) 10 mg PO [facility] Last Admin: 04/15/17 20:51 Dose: 10 mg Senna (Senokot) 2 tab PO HSPRN PRN PRN Reason: Constipation Sodium Chloride ([place] Nasal [place] 0.65%) 0 ml EA NARE QIDPRN PRN PRN Reason: Nasal Congestion Sodium Chloride (Sodium Chloride 3%) 15 ml NEB BID [facility] Last Admin: 04/16/17 07:40 Dose: 15 ml
--- NOTE | 2017-04-16 14:20 | PRG ---
DATE OF SERVICE: 04/16/2017 SUBJECTIVE: Balbina Wang this morning is awake, responsive. No pain, no shortness of breath. OBJECTIVE: VITAL SIGNS: Sats are 92%, respirations 24, blood pressure 110/70, temperature 98. CHEST: Reveals decreased breath sounds without any wheezing. CARDIAC: Normal S1, S2. No gallops. ABDOMEN: Soft. No masses. IMPRESSION: 1. Chronic obstructive pulmonary disease. 2. Respiratory failure. 3. Lung mass, status post biopsy, awaiting path. PLAN: In the meantime, continue neb treatments, supportive care, antibiotics. We will follow.
--- NOTE | 2017-04-16 16:57 | EKG ---
Test Reason : Blood Pressure : / mmHG Vent. Rate : 102 BPM Atrial Rate : 102 BPM P-R Int : 164 ms QRS Dur : 072 ms QT Int : 314 ms P-R-T Axes : 063 -25 038 degrees QTc Int : 409 ms Sinus tachycardia Anterior infarct , age undetermined Abnormal ECG Baseline Artifact Present Confirmed by FLYNN BROOKS, EDITA Villareal ([id number]), photo editor BIRDIE MILAN ([id number]) on 04/16/2017 4:56:47 PM Referred By: Confirmed By:EDITA PRUETT MD
[2017-04-17] MEDS ORDERED: Benzonatate 100 MG CAP PO PRN (02:00)
[2017-04-17] MEDS: Cefepime 2 GM in Sodium Chloride 0.9% 100 ML IVPB SCH ×2 (08:31→20:47)
[2017-04-17] MEDS: Enoxaparin Sodium 30 MG/0.3 ML SYRINGE SC SCH (08:31)
[2017-04-17] MEDS: clonazePAM 0.5 MG TAB PO SCH ×3 (08:32→20:47)
[2017-04-17] MEDS: guaiFENesin ER 600 MG TAB PO SCH ×2 (08:32→20:47)
[2017-04-17] MEDS: Ferrous Sulfate 325 MG TAB PO SCH (08:32)
[2017-04-17] MEDS: Mometasone/Formoterol 120 PUFF INHALER INH SCH ×2 (10:09→19:14)
[2017-04-17] MEDS: Sodium Chloride 3% (15 ML) NEB NEB SCH ×2 (10:37→19:14)
--- NOTE | 2017-04-17 10:38 | PDOC.PN ---
- Subjective Encounter Start Date: 04/17/17 Encounter Start Time: 09:20 Patient seen and examined. No new complaints. No overnight events - Objective Resuscitation Status: Resuscitation Status DNR:Do Not Resuscitate MAR Reviewed: Yes Vital Signs & Weight: Vital Signs (12 hours) Temp Pulse Resp BP BP Pulse Ox 04/17/17 10:09 87 20 97 04/17/17 10:03 97 04/17/17 10:02 87 20 97 04/17/17 09:52 87 20 97 04/17/17 08:31 87 04/17/17 08:00 98.1 F 82 20 153/79 H 100 04/17/17 03:51 98.0 F 87 18 157/77 H 100 04/17/17 00:52 102 H 20 04/17/17 00:00 98.1 F 102 H 20 143/59 H 90 L Weight Weight 154 lb 5.177 oz I&O: 04/16/17 04/17/17 04/18/17 06:59 06:59 06:59 Intake Total 510 1760 240 Balance 510 1760 240 Result Diagrams: 04/13/17 04:41 04/13/17 04:41 Additional Labs: Accuchecks 04/16/17 19:13 POC Glucose 326 H Phys Exam - Physical Examination Constitutional: NAD HEENT: PERRLA, moist MMs, sclera anicteric Neck: no JVD, supple Respiratory: no wheezing, no rales, no rhonchi Cardiovascular: RRR, no significant murmur, no rub Gastrointestinal: soft, non-tender, no distention, positive bowel sounds Musculoskeletal: no edema, pulses present Neurological: non-focal, normal sensation Lymphatic: no nodes Psychiatric: normal affect Skin: no rash, normal turgor Dx/Plan (1) Acute on chronic respiratory failure with hypoxia and hypercapnia Code(s): J96.21 - ACUTE AND CHRONIC RESPIRATORY FAILURE WITH HYPOXIA; J96.22 - ACUTE AND CHRONIC RESPIRATORY FAILURE WITH HYPERCAPNIA Status: Acute (2) COPD (chronic obstructive pulmonary disease) Status: Acute (3) Left lower lobe pneumonia Code(s): J18.1 - LOBAR PNEUMONIA, UNSPECIFIED ORGANISM Status: Acute (4) Anemia, normocytic normochromic Code(s): D64.9 - ANEMIA, UNSPECIFIED Status: Chronic (5) Anxiety and depression Code(s): F41.8 - OTHER SPECIFIED ANXIETY DISORDERS Status: Chronic (6) Dyslipidemia Code(s): E78.5 - HYPERLIPIDEMIA, UNSPECIFIED Status: Chronic (7) Hypertension Code(s): I10 - ESSENTIAL (PRIMARY) HYPERTENSION Status: Chronic (8) Obesity (BMI 30.0-34.9) Code(s): E66.9 - OBESITY, UNSPECIFIED Status: Chronic (9) Physical deconditioning Code(s): R53.81 - OTHER MALAISE Status: Chronic (10) Dementia Code(s): F03.90 - UNSPECIFIED DEMENTIA WITHOUT BEHAVIORAL DISTURBANCE Status: Chronic (11) Pulmonary mass Code(s): R91.8 - OTHER NONSPECIFIC ABNORMAL FINDING OF LUNG FIELD Status: Acute (12) Kyphoscoliosis Code(s): M41.9 - SCOLIOSIS, UNSPECIFIED Status: Chronic (13) Osteoporosis Code(s): M81.0 - AGE-RELATED OSTEOPOROSIS W/O CURRENT PATHOLOGICAL FRACTURE Status: Chronic - Plan cont current plan of care, continue antibiotics, respiratory therapy * pathology report of lung biopsy is negative for mlg, casiill ask pulmonary if she need percutenous biopsy or not * meanwhile continue cefepime and levaquin * continue current optimum medical treatment for copd * will consider discharge when pulmonary ok, may be tomorrow * medication reviewed as below * symptomatic treatment.. Review of Systems - Review of Systems ENT: negative: Ear Pain, Ear Discharge, Nose Pain, Nose Discharge, Nose Congestion, Mouth Pain, Mouth Swelling, Throat Pain, Throat Swelling, Other Respiratory: negative: Cough, Dry, Shortness of Breath, Hemoptysis, SOB with Excertion, Pleuritic Pain, Sputum, Wheezing Cardiovascular: negative: Chest Pain, Palpitations, Orthopnea, Paroxysmal Noc. Dyspnea, Edema, Light Headedness, Other Gastrointestinal: negative: Nausea, Vomiting, Abdominal Pain, Diarrhea, Constipation, Melena, Hematochezia, Other Genitourinary: negative: Dysuria, Frequency, Incontinence, Hematuria, Retention , Other Musculoskeletal: negative: Neck Pain, Shoulder Pain, Arm Pain, Back Pain, Hand Pain, Leg Pain, Foot Pain, Other - Medications/Allergies Allergies/Adverse Reactions: Allergies Allergy/AdvReac Type Severity Reaction Status Date / Time Penicillins Allergy Verified 04/12/17 12:56 Medications: Current Medications Acetaminophen (Tylenol) 650 mg PO Q4H PRN PRN Reason: Headache/Fever or Pain Last Admin: 04/15/17 22:36 Dose: 650 mg Hydrocodone Bitart/Acetaminophen ([place] 5/325) 1 tab PO Q4H PRN PRN Reason: Moderate Pain (4-6) Al Hydroxide/Mg Hydroxide (Maalox) 30 ml PO Q6H PRN PRN Reason: Heartburn or Indigestion Last Admin: 04/15/17 22:36 Dose: 30 ml Albuterol/Ipratropium (Duoneb) 3 ml NEB [id number] [facility] Last Admin: 04/17/17 09:52 Dose: 3 ml Artificial Tears (Tears Renewed 15ml Bottle) 0 drop EA EYE PRN PRN PRN Reason: Dry Eyes Benzonatate (Tessalon) 100 mg PO Q8H PRN PRN Reason: Cough Clonazepam (Klonopin) 0.5 mg PO TID [facility] Last Admin: 04/17/17 08:32 Dose: 0.5 mg Clonidine HCl (Catapres) 0.1 mg PO Q4H PRN PRN Reason: Systolic BP > 180 Diltiazem HCl (Cardizem Cd) 240 mg PO DAILY [facility] Last Admin: 04/17/17 08:31 Dose: 240 mg Enoxaparin Sodium (Lovenox) 30 mg SC 0900 [facility] Last Admin: 04/17/17 08:31 Dose: 30 mg Ferrous Sulfate (Feosol) 325 mg PO QA-[facility] Last Admin: 04/17/17 08:32 Dose: 325 mg Guaifenesin (Mucinex) 600 mg PO Q12HR [facility] Last Admin: 04/17/17 08:32 Dose: 600 mg Hydralazine HCl (Apresoline) 10 mg SLOW IVP Q4H PRN PRN Reason: Systolic BP > 180 Cefepime HCl 2 gm/ Sodium (Chloride) 100 mls @ 200 mls/hr IVPB Q12HR [facility] Last Admin: 04/17/17 08:31 Dose: 100 mls Levofloxacin 500 mg/ Device 100 mls @ 100 mls/hr IVPB 1800 [facility] Last Admin: 04/16/17 17:26 Dose: 100 mls Iron/Minerals/Multivitamins (Theragran M) 1 tab PO DAILY PRN PRN Reason: Anxiety/Restlessness/Sleep Loperamide HCl (Imodium) 2 mg PO PRN PRN PRN Reason: Diarrhea/Loose Stools Loratadine (Claritin) 10 mg PO DAILYPRN PRN PRN Reason: Sinus Symptoms Magnesium Hydroxide (Milk Of Magnesium) 30 ml PO DAILYPRN PRN PRN Reason: Constipation Methylprednisolone Sodium Succinate (Solu-Medrol) 40 mg IVP DAILY [facility] Last Admin: 04/17/17 08:32 Dose: 40 mg Mineral Oil/White Petrolatum (Eucerin Cream) 0 gm TOP BIDPRN PRN PRN Reason: Dry Skin Mometasone Furoate/Formoterol Fumar (Dulera 200 Mcg/5 Mcg Inhaler) 2 puff INH BID-RT [facility] Last Admin: 04/17/17 10:09 Dose: 2 puff Ondansetron HCl (Zofran Odt) 4 mg PO Q6H PRN PRN Reason: Nausea/Vomiting Ondansetron HCl (Zofran) 4 mg IVP Q6H PRN PRN Reason: Nausea/Vomiting Rosuvastatin Calcium (Crestor) 10 mg PO HS [facility] Last Admin: 04/16/17 21:01 Dose: 10 mg Senna (Senokot) 2 tab PO HSPRN PRN PRN Reason: Constipation Sodium Chloride ([place] Nasal [place] 0.65%) 0 ml EA NARE QIDPRN PRN PRN Reason: Nasal Congestion Sodium Chloride (Sodium Chloride 3%) 15 ml NEB BID [facility] Last Admin: 04/17/17 10:37 Dose: 15 ml
--- NOTE | 2017-04-17 13:31 | PRG ---
DATE OF SERVICE: 04/17/2017 SUBJECTIVE: Ms. Wang this morning is awake, alert, and responsive. Denies any shortness of breath, coughing or wheezing. OBJECTIVE: VITAL SIGNS: Sats are 97% on 3 liters, pulse 87, respirations 18. CHEST: Minimal crackles. CARDIAC: Normal S1, S2, no gallops. ABDOMEN: Soft. IMPRESSION: 1. Status post lung biopsy, awaiting pathology. 2. Respiratory failure, chronic obstructive pulmonary disease, bronchiectasis. PLAN: Continue Maxipime, continue steroids and neb treatments.
[2017-04-18] MEDS: Mometasone/Formoterol 120 PUFF INHALER INH SCH (08:58)
[2017-04-18] MEDS: Sodium Chloride 3% (15 ML) NEB NEB SCH (08:59)
[2017-04-18] MEDS: Ferrous Sulfate 325 MG TAB PO SCH (10:03)
[2017-04-18] MEDS: clonazePAM 0.5 MG TAB PO SCH (10:03)
[2017-04-18] MEDS: guaiFENesin ER 600 MG TAB PO SCH (10:03)
[2017-04-18] MEDS: Enoxaparin Sodium 30 MG/0.3 ML SYRINGE SC SCH (10:09)
[2017-04-18] MEDS: Cefepime 2 GM in Sodium Chloride 0.9% 100 ML IVPB SCH (11:08)
--- NOTE | 2017-04-18 11:12 | PDOC.PN ---
- Subjective Encounter Start Date: 04/18/17 Encounter Start Time: 08:35 Patient seen and examined. No new complaints. No overnight events - Objective Resuscitation Status: Resuscitation Status DNR:Do Not Resuscitate MAR Reviewed: Yes Vital Signs & Weight: Vital Signs (12 hours) Temp Pulse Resp BP Pulse Ox 04/18/17 10:02 99 04/18/17 08:59 91 24 H 96 04/18/17 08:58 91 24 H 96 04/18/17 08:45 91 20 96 04/18/17 08:43 91 24 H 96 04/18/17 07:40 98.5 F 91 16 158/71 H 98 04/18/17 04:00 98.3 F 75 20 144/83 H 98 04/18/17 03:25 16 93 L 04/18/17 01:14 71 16 04/18/17 00:00 98.3 F 66 20 151/79 H Weight Weight 154 lb 5.177 oz I&O: 04/17/17 04/18/17 04/19/17 06:59 06:59 06:59 Intake Total 1760 1320 Balance 1760 1320 Result Diagrams: 04/13/17 04:41 04/13/17 04:41 Phys Exam - Physical Examination Constitutional: NAD HEENT: PERRLA, moist MMs, sclera anicteric Neck: no JVD, supple Respiratory: no wheezing, no rales, no rhonchi Cardiovascular: RRR, no significant murmur, no rub Gastrointestinal: soft, non-tender, no distention, positive bowel sounds Musculoskeletal: no edema, pulses present Neurological: non-focal, normal sensation Lymphatic: no nodes Psychiatric: normal affect Skin: no rash, normal turgor Dx/Plan (1) Acute on chronic respiratory failure with hypoxia and hypercapnia Code(s): J96.21 - ACUTE AND CHRONIC RESPIRATORY FAILURE WITH HYPOXIA; J96.22 - ACUTE AND CHRONIC RESPIRATORY FAILURE WITH HYPERCAPNIA Status: Acute (2) COPD (chronic obstructive pulmonary disease) Status: Acute (3) Left lower lobe pneumonia Code(s): J18.1 - LOBAR PNEUMONIA, UNSPECIFIED ORGANISM Status: Acute (4) Anemia, normocytic normochromic Code(s): D64.9 - ANEMIA, UNSPECIFIED Status: Chronic (5) Anxiety and depression Code(s): F41.8 - OTHER SPECIFIED ANXIETY DISORDERS Status: Chronic (6) Dyslipidemia Code(s): E78.5 - HYPERLIPIDEMIA, UNSPECIFIED Status: Chronic (7) Hypertension Code(s): I10 - ESSENTIAL (PRIMARY) HYPERTENSION Status: Chronic (8) Obesity (BMI 30.0-34.9) Code(s): E66.9 - OBESITY, UNSPECIFIED Status: Chronic (9) Physical deconditioning Code(s): R53.81 - OTHER MALAISE Status: Chronic (10) Dementia Code(s): F03.90 - UNSPECIFIED DEMENTIA WITHOUT BEHAVIORAL DISTURBANCE Status: Chronic (11) Pulmonary mass Code(s): R91.8 - OTHER NONSPECIFIC ABNORMAL FINDING OF LUNG FIELD Status: Acute (12) Kyphoscoliosis Code(s): M41.9 - SCOLIOSIS, UNSPECIFIED Status: Chronic (13) Osteoporosis Code(s): M81.0 - AGE-RELATED OSTEOPOROSIS W/O CURRENT PATHOLOGICAL FRACTURE Status: Chronic - Plan cont current plan of care, continue antibiotics, respiratory therapy * medication reviewed as below * symptomatic treatment. * see discharge summery * medically stable. * dr marck harrison with discharge. Review of Systems - Review of Systems ENT: negative: Ear Pain, Ear Discharge, Nose Pain, Nose Discharge, Nose Congestion, Mouth Pain, Mouth Swelling, Throat Pain, Throat Swelling, Other Respiratory: negative: Cough, Dry, Shortness of Breath, Hemoptysis, SOB with Excertion, Pleuritic Pain, Sputum, Wheezing Cardiovascular: negative: Chest Pain, Palpitations, Orthopnea, Paroxysmal Noc. Dyspnea, Edema, Light Headedness, Other Gastrointestinal: negative: Nausea, Vomiting, Abdominal Pain, Diarrhea, Constipation, Melena, Hematochezia, Other Genitourinary: negative: Dysuria, Frequency, Incontinence, Hematuria, Retention , Other - Medications/Allergies Allergies/Adverse Reactions: Allergies Allergy/AdvReac Type Severity Reaction Status Date / Time Penicillins Allergy Verified 04/12/17 12:56 Medications: Current Medications Acetaminophen (Tylenol) 650 mg PO Q4H PRN PRN Reason: Headache/Fever or Pain Last Admin: 04/15/17 22:36 Dose: 650 mg Hydrocodone Bitart/Acetaminophen ([place] 5/325) 1 tab PO Q4H PRN PRN Reason: Moderate Pain (4-6) Al Hydroxide/Mg Hydroxide (Maalox) 30 ml PO Q6H PRN PRN Reason: Heartburn or Indigestion Last Admin: 04/15/17 22:36 Dose: 30 ml Albuterol/Ipratropium (Duoneb) 3 ml NEB [id number] [facility] Last Admin: 04/18/17 08:43 Dose: 3 ml Artificial Tears (Tears Renewed 15ml Bottle) 0 drop EA EYE PRN PRN PRN Reason: Dry Eyes Benzonatate (Tessalon) 100 mg PO Q8H PRN PRN Reason: Cough Clonazepam (Klonopin) 0.5 mg PO TID [facility] Last Admin: 04/18/17 10:03 Dose: 0.5 mg Clonidine HCl (Catapres) 0.1 mg PO Q4H PRN PRN Reason: Systolic BP > 180 Diltiazem HCl (Cardizem Cd) 240 mg PO DAILY [facility] Last Admin: 04/18/17 10:02 Dose: 240 mg Enoxaparin Sodium (Lovenox) 30 mg SC 0900 [facility] Last Admin: 04/18/17 10:09 Dose: 30 mg Ferrous Sulfate (Feosol) 325 mg PO QAM-WM [facility] Last Admin: 04/18/17 10:03 Dose: 325 mg Guaifenesin (Mucinex) 600 mg PO Q12HR [facility] Last Admin: 04/18/17 10:03 Dose: 600 mg Hydralazine HCl (Apresoline) 10 mg SLOW IVP Q4H PRN PRN Reason: Systolic BP > 180 Cefepime HCl 2 gm/ Sodium (Chloride) 100 mls @ 200 mls/hr IVPB Q12HR [facility] Last Admin: 04/18/17 11:08 Dose: 100 mls Levofloxacin 500 mg/ Device 100 mls @ 100 mls/hr IVPB 1800 [facility] Last Admin: 04/17/17 17:36 Dose: 100 mls Iron/Minerals/Multivitamins (Theragran M) 1 tab PO DAILY PRN PRN Reason: Anxiety/Restlessness/Sleep Loperamide HCl (Imodium) 2 mg PO PRN PRN PRN Reason: Diarrhea/Loose Stools Loratadine (Claritin) 10 mg PO DAILYPRN PRN PRN Reason: Sinus Symptoms Magnesium Hydroxide (Milk Of Magnesium) 30 ml PO DAILYPRN PRN PRN Reason: Constipation Methylprednisolone Sodium Succinate (Solu-Medrol) 40 mg IVP DAILY [facility] Last Admin: 04/18/17 10:03 Dose: 40 mg Mineral Oil/White Petrolatum (Eucerin Cream) 0 gm TOP BIDPRN PRN PRN Reason: Dry Skin Mometasone Furoate/Formoterol Fumar (Dulera 200 Mcg/5 Mcg Inhaler) 2 puff INH BID-RT [facility] Last Admin: 04/18/17 08:58 Dose: 2 puff Ondansetron HCl (Zofran Odt) 4 mg PO Q6H PRN PRN Reason: Nausea/Vomiting Ondansetron HCl (Zofran) 4 mg IVP Q6H PRN PRN Reason: Nausea/Vomiting Rosuvastatin Calcium (Crestor) 10 mg PO HS [facility] Last Admin: 04/17/17 20:47 Dose: 10 mg Senna (Senokot) 2 tab PO HSPRN PRN PRN Reason: Constipation Sodium Chloride ([place] Nasal [place] 0.65%) 0 ml EA NARE QIDPRN PRN PRN Reason: Nasal Congestion Sodium Chloride (Sodium Chloride 3%) 15 ml NEB BID [facility] Last Admin: 04/18/17 08:59 Dose: 15 ml
[2017-04-18 11:35] VITALS: BP 128/71; TEMP 98.3
--- NOTE | 2017-04-18 13:21 | DIS ---
PRIMARY CARE PHYSICIAN: Dr. Clifton Malloy DATE OF ADMISSION: 04/12/2017 DATE OF DISCHARGE: 04/18/2017 DISCHARGE DISPOSITION: Home. PRIMARY DISCHARGE DIAGNOSES: 1. Acute on chronic respiratory failure with hypoxia and hypercapnia. 2. Chronic obstructive pulmonary disease exacerbation 3. Left lower lobe pneumonia. 4. Pulmonary mass. SECONDARY DISCHARGE DIAGNOSES: Chronic physical deconditioning, osteoporosis, obesity with BMI of 3 0, kyphoscoliosis, senile dementia, hypertension, dyslipidemia, anxiety and depression, chronic norm ocytic anemia, chronic respiratory failure, end-stage chronic obstructive pulmonary disease. PRIMARY PROCEDURE/OPERATION: Bronchoscopy. RADIOLOGICAL INVESTIGATION: Chest x-ray. SIGNIFICANT LABS: Hemoglobin 9.8, CO2 71.8, creatinine 0.63. LFTs normal. Urinalysis normal. Ple ural fluid; WBC 150, ANCA antiprotein is 3, rheumatoid factor, ANCA negative. Blood culture was negative. AFB negative. DISCHARGE MEDICATIONS: The patient will continue all her previous home medications. Only new medic ation we prescribed from the hospital is levofloxacin 500 mg p.o. daily for 10 days, Mucinex 600 mg twice daily for 10 days. CONTRAINDICATIONS: None. CODE STATUS: DNR. INPATIENT CONSULTANTS: Dr. Wolff was following while in the hospital. TEST RESULTS PENDING ON DISCHARGE: None. ALLERGIES: PENICILLIN. DISCHARGE PLAN: Post hospital, the patient will follow up with Dr. Wolff as instructed. HOSPITAL COURSE: A 72-year-old female who was living in [facility], but she recently moved to [facility] and now lives with her granddaughter. She does have chronic respiratory failure and COPD . She was having increasing shortness of breath. She made appointment with Dr. Wolff and the pat ient appeared hypoxic in his office and that is why he advised to go to the ER. The patient was adm itted in hospital, she was treated for pneumonia. She was treated for COPD flare-up. As this patie nt has lung mass and that is why Dr. Wolff did bronchoscopy, pathology report was negative for any malignancy. This patient was not a candidate for any transcutaneous lung biopsy as per Dr. Wolff . While in hospital, the patient was getting IV antibiotic therapy with cefepime and Levaquin. On dis charge, we changed to Levaquin for another 10 days. Rest of medications she will continue. This patient was needing nocturnal ventilator and that was arranged with help of transplant case manager. This patient will continue to follow up with Dr. Wolff and Dr. Malloy on an outpatient basis. She is stable and up to her baseline status. The patient is seen and examined at bedside today. Please see my progress note from today for furth er details.
--- NOTE | 2017-04-18 21:16 | PRG ---
DATE OF SERVICE: 04/18/2017 SERVICE: Pulmonary Medicine. INTERVAL HISTORY: The patient is doing fine from a cardiovascular and respiratory standpoint. She has essentially returned to her baseline. Whenever she gets up and walks around, she has fairly pro found dyspnea. That being said, everything is set up at home for her at leave at this point. We ar e not doing anything at the hospital that cannot be continued in the home setting. PHYSICAL EXAMINATION: VITAL SIGNS: Afebrile, pulse 100, blood pressure 128/71, respirations 16, and saturation 92% on 3 l iters nasal cannula. GENERAL: The patient is awake and alert, in no apparent distress. LUNGS: Decent air entry. There is a prolonged expiratory phase. There is extensive wheezing which is polyphonic. I appreciate crackles or rhonchi. HEART: Normal rate, regular. ABDOMEN: Soft, nontender, and nondistended. Bowel sounds positive. MUSCULOSKELETAL: No cyanosis or clubbing. No pitting in the bilateral lower extremities. NEUROLOGIC: Grossly nonfocal. LABORATORY DATA: Ankles are unremarkable. Rheumatoid factor is negative. IgA levels including min imally reduced. Cystic fibrosis analysis is currently pending. Bronchial washings are growing yeas t species. AFB smears negative to date. Cultures are pending. Blood cultures x2 are unremarkable. ASSESSMENT: 1. Acute on chronic hypoxic respiratory failure. 2. Chronic obstructive pulmonary disease with acute exacerbation. 3. Bronchiectasis with acute exacerbation. 4. Pulmonary mass. 5. Osteoporosis, suspected. 6. Chronic hypercapnic respiratory failure. PLAN: The patient will be discharged home. We will continue our inhaled medication and physiothera py. She will have noninvasive ventilation in the form of AVAPS once she gets out of the hospital. I have to return to clinic within 4 weeks so that we could download, so that we can follow up her re spiratory issues. If the physiotherapy does not work with the Acapella valve, she may require vest therapy. If she remains in house, I will continue to follow.
== END 2017-04-18 16:02 | disposition home or self-care (01) | DRG 166 ==
LOC: ERS 11:41 → T4-B 13:15
PROVIDERS: ADMIT Family Medicine; ATTEND Family Medicine
PROC: 0BBJ8ZX Excision of Left Lower Lung Lobe, Via Natural or Artificial Opening Endoscopic, Diagnostic (ICD-10-PCS; principal; 2017-04-14)
PROC: 0B9B8ZX Drainage of Left Lower Lobe Bronchus, Via Natural or Artificial Opening Endoscopic, Diagnostic (ICD-10-PCS; 2017-04-14)
DX: J96.21 Acute and chronic respiratory failure with hypoxia (principal); J18.9 Pneumonia, unspecified organism; Z99.81 Dependence on supplemental oxygen; J44.0 Chronic obstructive pulmonary disease with (acute) lower respiratory infection; F03.90 Unspecified dementia, unspecified severity, without behavioral disturbance, psychotic disturbance, mood disturbance, and anxiety; J44.1 Chronic obstructive pulmonary disease with (acute) exacerbation; J98.11 Atelectasis; D64.9 Anemia, unspecified; Z87.891 Personal history of nicotine dependence; J96.22 Acute and chronic respiratory failure with hypercapnia; J20.9 Acute bronchitis, unspecified; Z95.5 Presence of coronary angioplasty implant and graft; Z98.49 Cataract extraction status, unspecified eye; Z79.52 Long term (current) use of systemic steroids; I10 Essential (primary) hypertension; Z88.0 Allergy status to penicillin; F41.8 Other specified anxiety disorders; J98.4 Other disorders of lung; D72.829 Elevated white blood cell count, unspecified; Z66 Do not resuscitate; R91.8 Other nonspecific abnormal finding of lung field; M81.0 Age-related osteoporosis without current pathological fracture; E66.9 Obesity, unspecified; Z68.30 Body mass index [BMI] 30.0-30.9, adult; M41.9 Scoliosis, unspecified; E78.5 Hyperlipidemia, unspecified
CPT/HCPCS: 36415; 36416; 71010; 80053; 81001; 81220; 82553; 82805; 83605; 83880; 84484; 85025; 85060; 86021; 86038; 86430; 87040; 87070; 87102; 87116; 87205; 87206; 88112; 88305; 88313; 89051; 90471; 90732; 93005; 94640; 94667; 94668; 96365; 96367; G0009; G8978-GP-CM; G8979-GP-CK; G8987-GO-CI; G8988-GO-CI; G8989-GO-CI; J0692; J1650; J1956; J2001; J2405; J2704; J2920; J3010; J3370; J7050; J7620

== ENCOUNTER 2017-05-10 09:11 | Outpatient (CLI) | payer MEDICARE | END 2017-05-10 09:12 | disposition home or self-care (01) | LOC: CP 09:11 | PROVIDERS: ATTEND Internal Medicine | DX: J44.9 Chronic obstructive pulmonary disease, unspecified (principal) | CPT/HCPCS: 94060; 94727; 94729 ==

== ENCOUNTER 2017-06-15 09:56 | Outpatient (CLI) | payer MEDICARE ==
--- NOTE | 2017-06-15 11:19 | RAD ---
TWO VIEWS CHEST: Date: 06-15-17 Comparison: 04-12-17 History: Dyspnea. FINDINGS: There are three adjacent upper/mid thoracic anterior wedge compression fractures with internal increa sed densities suggesting multiple areas of kyphoplasty, likely the T4, T5, and T6 vertebral bodies. T here is mild anterior wedging of T7 and T9, evidence of additional fractures. There is no pneumothora x or pleural fluid and no focal consolidation or alveolar edema. There is mild increased linear inter stitial density which in both lungs with pulmonary hyperinflation. IMPRESSION: Chronic findings as detailed above. No lobar consolidation or alveolar edema. POS: [facility]
== END 2017-06-15 09:57 | disposition home or self-care (01) ==
LOC: RAD 09:56
PROVIDERS: ATTEND Internal Medicine
DX: R06.00 Dyspnea, unspecified (principal); Z98.890 Other specified postprocedural states; J98.4 Other disorders of lung
CPT/HCPCS: 71020

== ENCOUNTER 2017-07-17 12:06 | Inpatient (IN) | payer MEDICARE ==
[2017-07-17 12:57] LABS: #Eosinphils 0.2 thou/uL (0.0-0.7); #Lymphocytes 0.9 thou/uL (1.20-3.40); #Monocytes 1.1 thou/uL (0.11-0.59); #Neutrophils 13.5 thou/uL (1.40-6.50); %Basophils 0.2 % (0.0-1.0); %Eosinophils 1.1 % (0.0-10.0); %Lymphocytes 5.6 % (21.0-51.0); %Monocytes 6.8 % (0.0-10.0); %Neutrophils 86.3 % (42.0-75.0); Hemoglobin 8.9 g/dL (12.0-16.0); Mean Corpuscular HGB CONC 31.2 g/dL (32.0-36.0); Mean Corpuscular Hemoglobin 26.5 pg (27.0-31.0); Mean Corpuscular Volume 84.8 fl (81.0-99.0); Mean Platelet Volume 5.5 fL (7.4-10.4); Platelet Count 551 thou/uL (130-400); Red Blood Cell (RBC) Count 3.35 mill/uL (4.20-5.40); White Blood Cell (WBC) Count 15.6 thou/uL (4.8-10.8)
[2017-07-17 13:03] LABS: INR-International Normal Ratio 0.9; PTT 27.7 SEC (22.9-36.1); Prothrombin Time 12.6 SEC (12.0-14.7)
[2017-07-17] MEDS ORDERED: Albuterol Sulfate 2.5 mg/0.5 ml Neb ONE (13:05)
[2017-07-17 13:20] LABS: ALT (SGPT) 16 U/L (8-55); AST (SGOT) 19 U/L (5-34); Albumin 4.1 g/dL (3.4-4.8); Alkaline Phosphatase 62 U/L (40-150); Anion Gap 12 mmol/L (10-20); BUN (Urea Nitrogen) 18 mg/dL (9.8-20.1); Bilirubin, Total 0.6 mg/dL (0.2-1.2); CK (CPK) 92 U/L (29-168); CKMB 2.3 ng/mL (0-6.6); Calc. Creatinine Clearance 0 mL/min (70-130); Calcium 9.6 mg/dL (7.8-10.44); Carbon Dioxide 36 mmol/L (23-31); Chloride 89 mmol/L (98-107); Estimated GFR-MDRD 64; Globulin 3.1 g/dL (2.4-3.5); Glucose 142 mg/dL (83-110); Lipase 9 U/L (8-78); Potassium 3.2 mmol/L (3.5-5.1); Protein, Total 7.2 g/dL (6.0-8.3); Sodium 134 mmol/L (136-145); Troponin I 0.026 ng/mL (< 0.028)
[2017-07-17 13:20] LABS: Actual Bicarbonate (HCO3a) 35.1 mEq/L (22-26); Base Excess (BEa) 9.2 mEq/L (0 (+/-) 2.5); CO2 Tension 55.7 mmHg (35.0-45.0); Calcium, Ionized 1.1 mmol/L (1.12-1.30); Hematocrit-ABG 35.7 % (36.0-47.0); Hemoglobin (Hb) 9.5 g/dL (12.0-16.0); O2 Tension (PaO2) 88.2 mmHg (80.0-100.0); pH, Arterial 7.42 (7.35-7.45)
[2017-07-17 13:21] LABS: ALV-art Gradient 71.295 (0-20); Analyzer IN Cardio ER; Puncture Site RRA
[2017-07-17] MEDS ORDERED: Magnesium 2 GM/NS 0.9% 50 ML 2 GM in Premix Bag 1 BAG IVPB SCH (13:30)
[2017-07-17 13:35] LABS: Bilirubin Negative (Negative); Blood, Urine Negative (Negative); Clarity CLEAR (Clear); Glucose, Urine (Dipstick) Negative (Negative); Leukocyte Negative (Negative); Nitrite Negative (Negative); Protein, Urine (Dipstick) Negative (Neg-Trace); Specific Gravity, Urine 1.011 (1.002-1.036); Urobilinogen 0.2 mg/dL (0.2-1.0); pH, Urine 6.5 (5.0-9.0)
[2017-07-17] MEDS ORDERED: Magnesium 2 GM/NS 0.9% 100 ML 2 GM in Premix Bag 1 BAG IVPB SCH (13:45)
[2017-07-17] MEDS ORDERED: Dexamethasone 10 MG/ML VIAL ONE (13:48)
--- NOTE | 2017-07-17 14:04 | RAD ---
AP VIEW CHEST: Date: 07/17/17 HISTORY: Dyspnea. FINDINGS: Comparison made to previous exam from 06/15/17. AP view of chest demonstrates the lungs to be well aerated. No evidence of active intrathoracic disea se seen. No evidence of effusions, pneumonia, or pneumothorax seen. Mid thoracic kyphoplasty change a re seen. There are significant left shoulder osteoarthritic changes seen. IMPRESSION: Unremarkable AP view chest. POS: [facility]
[2017-07-17] MEDS ORDERED: Ondansetron HCl/PF 4 MG/2 ML Vial IVP PRN (14:41)
[2017-07-17] MEDS ORDERED: Senokot 8.6 MG TAB PO PRN (14:41)
[2017-07-17] MEDS ORDERED: Acetaminophen 325 MG TAB PO PRN (14:41)
[2017-07-17] MEDS ORDERED: traMADol HCl 50 MG TAB PO PRN (14:41)
[2017-07-17] MEDS ORDERED: Guaifenesin DM 100-10/5 ML UDCUP PO PRN (14:41)
[2017-07-17] MEDS ORDERED: Levofloxacin 500 mg/D5W 100 ml Premix Bag ONE (15:11)
[2017-07-17 17:05] VITALS: BMI 28.1
[2017-07-17] MEDS: Sodium Chloride 0.9% 1,000 ML IV SCH (17:53)
--- NOTE | 2017-07-17 19:23 | HP ---
REASON FOR ADMISSION: COPD exacerbation. HISTORY OF PRESENT ILLNESS: Patient gives history of not feeling good from yesterday. She has been lethargic per granddaughter who is here at bedside and was sleeping the whole day and night yesterday. This morning, the shortness of breath, cough with wheezing got worse. She also had low grade fever. Here in the ER, she has had a fever of 99.9 degrees. Patient has clear expectoration of sputum. Patient has severe COPD and is on 3 liters nasal cannula oxygen and is also on 10 mg of prednisone on a daily basis at home. She also mentions that she had stomach flu on 07/01 and from then on it has been downhill for her. Currently, has no chest pain, palpitations or PND. Patient has orthopnea and is comfortable at 45 degrees head end elevation. PAST MEDICAL AND SURGICAL HISTORY: History of COPD, osteoporosis, senile dementia, kyphoscoliosis, hypertension, dyslipidemia, chronic anemia, history of end-stage COPD, bladder suspension surgery, appendectomy, cataract surgery, back surgery, coronary artery disease with prior angioplasty, dyslipidemia, osteoarthritis, history of lung mass, depression, anxiety. CURRENT MEDICATIONS: Patient is on aspirin 81 mg p.o. at bedtime, Cardizem-CD 240 mg p.o. daily, clonazepam 0.5 mg p.o. at bedtime, Cozaar 50 mg p.o. daily, Crestor 10 mg p.o. daily, DuoNebs twice daily, hydrochlorothiazide 12.5 mg p.o. daily, Lasix 40 mg p.r.n. for fluid retention, potassium chloride 10 mEq p.o. daily, prednisone 10 mg p.o. daily, Advair Diskus twice daily, Flonase nasal spray 1 spray to each nostril daily. ALLERGIES: Allergic to DARVON, LISINOPRIL, PENICILLIN, and SULFA. PERSONAL HISTORY: Quit smoking more than 10 years ago, does not abuse alcohol or drugs. FAMILY HISTORY: Both parents have had history of coronary artery disease. Mom at the age of 72. Father at the age of 48 years with massive FL. REVIEW OF SYSTEMS: The following complete review of systems was negative, unless otherwise mentioned in the HPI or below: Constitutional: Weight loss or gain, ability to conduct usual activities. Skin: Rash, itching. Eyes: Double vision, pain. ENT/Mouth: Nose bleeding, neck stiffness, pain, tenderness. Cardiovascular: Palpitations, dyspnea on exertion, orthopnea. Respiratory: Shortness of breath, wheezing, cough, hemoptysis, fever or night sweats. Gastrointestinal: Poor appetite, abdominal pain, heartburn, nausea, vomiting, constipation, or diarrhea. Genitourinary: Urgency, frequency, dysuria, nocturia. Musculoskeletal: Pain, swelling. Neurologic/Psychiatric: Anxiety, depression. Allergy/Immunologic: Skin rash, bleeding tendency. PHYSICAL EXAMINATION: GENERAL: Patient is a 72-year-old female who is currently not in any acute distress. VITAL SIGNS: Blood pressure 150/72, pulse 96 per minute, respiratory rate 20 per minute, temperature 99.2 degrees Fahrenheit, saturating 96% on 3 liters nasal cannula. NECK: Supple, no elevated JVD. HEENT: Eyes: Extraocular muscles intact. Pupils are reacting to light. Oral cavity mucous membranes are dry. No exudates or congestion. CARDIOVASCULAR: S1, S2 heard. Regular rhythm. RESPIRATORY: Air entry 1+ bilateral. Scattered wheezes plus bilateral. ABDOMEN: Soft, bowel sounds heard. No tenderness, rigidity or guarding. EXTREMITIES: No peripheral edema or calf tenderness. VASCULAR SYSTEM: Peripheral pulses 1+ bilateral. No ischemic ulcerations or gangrene. CENTRAL NERVOUS SYSTEM: No gross focal deficits seen. PSYCHIATRIC: Patient is a bit anxious, otherwise no hallucinations or delusions. LABORATORY AND X-RAY FINDINGS: Influenza A and B antigen nasal swab is negative. Chest x-ray done shows no acute infiltrate. Potassium 3.2, serum bicarbonate 36, glucose 142. Liver enzymes within normal limits. First set of cardiac enzymes are negative. BNP 15, albumin is 4.1, lipase is 9. Blood gas done shows a pH of 7.42, pCO2 of 55, pO2 of 88. White count of 15, H&H 9 and 28 , platelet count is 551, MCV is 84 with 86% neutrophils. PT, INR, PTT within normal limits. EKG done shows normal sinus rhythm at 93 beats per minute with poor R-wave progression. CLINICAL IMPRESSION AND PLAN: Patient will be admitted to medical floor for acute on chronic end-stage COPD with exacerbation. She will be on Solu-Medrol 40 mg IV q.6 hourly along with empiric, doxycycline 100 mg twice daily. She will be on DuoNebs q.6 hourly. We will continue her home medications including aspirin, Cardizem, clonazepam, Cozaar, Crestor for now. Her hydrochlorothiazide and Lasix will be held for now. We will continue to closely monitor her during her stay here. TERESA
[2017-07-17] MEDS: Losartan Potassium 25 MG TAB PO SCH (21:37)
[2017-07-17] MEDS: Famotidine 20 MG TAB PO SCH (21:38)
[2017-07-17] MEDS: guaiFENesin ER 600 MG TAB PO SCH (21:38)
[2017-07-17] MEDS: Aspirin 81 mg Enteric Coated Tablet PO SCH (21:38)
[2017-07-18 05:28] LABS: #Lymphocytes 0.5 thou/uL (1.20-3.40); #Monocytes 0.2 thou/uL (0.11-0.59); #Neutrophils 7.7 thou/uL (1.40-6.50); %Basophils 0.2 % (0.0-1.0); %Eosinophils 0.2 % (0.0-10.0); %Monocytes 1.8 % (0.0-10.0); %Neutrophils 91.8 % (42.0-75.0); Mean Corpuscular HGB CONC 31.7 g/dL (32.0-36.0); Mean Corpuscular Hemoglobin 26.9 pg (27.0-31.0); Mean Corpuscular Volume 84.8 fl (81.0-99.0); Mean Platelet Volume 5.8 fL (7.4-10.4); Platelet Count 469 thou/uL (130-400); RBC Distribution Width 13.7 % (11.5-14.5); Red Blood Cell (RBC) Count 3.36 mill/uL (4.20-5.40); White Blood Cell (WBC) Count 8.4 thou/uL (4.8-10.8)
[2017-07-18 05:45] LABS: Anion Gap 14 mmol/L (10-20); BUN (Urea Nitrogen) 17 mg/dL (9.8-20.1); Calc. Creatinine Clearance 72 mL/min (70-130); Calcium 9.7 mg/dL (7.8-10.44); Carbon Dioxide 34 mmol/L (23-31); Chloride 93 mmol/L (98-107); Estimated GFR-MDRD 76; Glucose 159 mg/dL (83-110); Potassium 3.8 mmol/L (3.5-5.1); Sodium 137 mmol/L (136-145)
[2017-07-18] MEDS ORDERED: Aspirin 81 mg Enteric Coated Tablet PO SCH (09:00)
[2017-07-18] MEDS ORDERED: Losartan Potassium 25 MG TAB PO SCH (09:00)
[2017-07-18] MEDS: Famotidine 20 MG TAB PO SCH ×2 (09:29→20:35)
[2017-07-18] MEDS: Enoxaparin Sodium 40 MG/0.4 ML SYRINGE SC SCH (09:29)
[2017-07-18] MEDS: guaiFENesin ER 600 MG TAB PO SCH ×2 (09:29→20:35)
[2017-07-18] MEDS: Sodium Chloride 0.9% 1,000 ML IV SCH (09:35)
--- NOTE | 2017-07-18 10:22 | PDOC.PN ---
- Subjective Encounter Start Date: 07/18/17 Encounter Start Time: 08:30 Subjective: breathing better, slept well - Objective Resuscitation Status: Resuscitation Status FULL:Full Resuscitation MAR Reviewed: Yes Vital Signs & Weight: Vital Signs (12 hours) Temp Pulse Resp BP Pulse Ox 07/18/17 08:03 84 20 98 07/18/17 04:35 97.4 F L 85 20 135/64 97 07/18/17 00:00 97.5 F L 92 20 138/83 96 I&O: 07/17/17 07/18/17 07/19/17 06:59 06:59 06:59 Intake Total 400 Balance 400 Result Diagrams: 07/18/17 04:51 07/18/17 04:51 Phys Exam - Physical Examination HEENT: PERRLA, sclera anicteric Neck: no JVD, supple Respiratory: no wheezing, no rales rhonchi+ Cardiovascular: RRR, no significant murmur Gastrointestinal: soft, non-tender, positive bowel sounds Musculoskeletal: no edema, pulses present Neurological: non-focal, moves all 4 limbs Psychiatric: A&O x 3 Dx/Plan (1) COPD (chronic obstructive pulmonary disease) Status: Acute Qualifiers: COPD type: COPD with acute exacerbation Qualified Code(s): J44.1 - Chronic obstructive pulmonary disease with (acute) exacerbation (2) Anemia, normocytic normochromic Code(s): D64.9 - ANEMIA, UNSPECIFIED Status: Chronic (3) Anxiety and depression Code(s): F41.8 - OTHER SPECIFIED ANXIETY DISORDERS Status: Chronic (4) Dementia Code(s): F03.90 - UNSPECIFIED DEMENTIA WITHOUT BEHAVIORAL DISTURBANCE Status: Chronic Qualifiers: Dementia type: unspecified type Dementia behavioral disturbance: without behavioral disturbance Qualified Code(s): F03.90 - Unspecified dementia without behavioral disturbance (5) Dyslipidemia Code(s): E78.5 - HYPERLIPIDEMIA, UNSPECIFIED Status: Chronic (6) Hypertension Code(s): I10 - ESSENTIAL (PRIMARY) HYPERTENSION Status: Chronic Qualifiers: Hypertension type: essential hypertension Qualified Code(s): I10 - Essential (primary) hypertension (7) Osteoporosis Code(s): M81.0 - AGE-RELATED OSTEOPOROSIS W/O CURRENT PATHOLOGICAL FRACTURE Status: Chronic Qualifiers: Osteoporosis type: unspecified - Plan is on steroids, nebs and empiric doxy -: gentle iv hydration till am and dc -: will consult pulm medicine -: to amb in room and hallway as tolerated * . Review of Systems - Medications/Allergies Allergies/Adverse Reactions: Allergies Allergy/AdvReac Type Severity Reaction Status Date / Time lisinopril Allergy Verified 07/17/17 17:04 Penicillins Allergy Verified 07/17/17 17:03 propoxyphene [From Darvon] Allergy Verified 07/17/17 17:04 Sulfa (Sulfonamide Allergy Verified 07/17/17 17:04 Antibiotics) Medications: Current Medications Acetaminophen (Tylenol) 650 mg PO Q4H PRN PRN Reason: Headache/Fever or Pain Last Admin: 07/18/17 09:34 Dose: 650 mg Albuterol/Ipratropium (Duoneb) 3 ml NEB [id number] [facility] Last Admin: 07/18/17 08:03 Dose: 3 ml Aspirin (Ecotrin) 81 mg PO 2100 [facility] Last Admin: 07/17/17 21:38 Dose: 81 mg Clonazepam (Klonopin) 0.5 mg PO TID PRN PRN Reason: Anxiety/Agitation Diltiazem HCl (Cardizem Cd) 240 mg PO 2100 [facility] Last Admin: 07/17/17 21:38 Dose: 240 mg Doxycycline Hyclate (Vibramycin) 100 mg PO BID [facility] Enoxaparin Sodium (Lovenox) 40 mg SC 0900 [facility] Last Admin: 07/18/17 09:29 Dose: 40 mg Famotidine (Pepcid) 20 mg PO BID [facility] Last Admin: 07/18/17 09:29 Dose: 20 mg Fluticasone Propionate (Flonase Nasal [place]) 0 gm NASAL DAILY [facility] Guaifenesin (Mucinex) 600 mg PO Q12HR [facility] Last Admin: 07/18/17 09:29 Dose: 600 mg Guaifenesin/Dextromethorphan (Robitussin Dm) 15 ml PO Q4H PRN PRN Reason: Cough Sodium Chloride (Normal Saline 0.9%) 1,000 mls @ 50 mls/hr IV .Q20H [facility] Last Admin: 07/18/17 09:35 Dose: 1,000 mls Losartan Potassium (Cozaar) 50 mg PO 2100 [facility] Last Admin: 07/17/17 21:37 Dose: 50 mg Methylprednisolone Sodium Succinate (Solu-Medrol) 40 mg IVP Q6HR [facility] Last Admin: 07/18/17 05:21 Dose: 40 mg Ondansetron HCl (Zofran) 4 mg IVP Q6H PRN PRN Reason: Nausea/Vomiting Rosuvastatin Calcium (Crestor) 10 mg PO 2100 [facility] Last Admin: 07/17/17 21:38 Dose: 10 mg Senna (Senokot) 2 tab PO HSPRN PRN PRN Reason: Constipation Tramadol HCl (Ultram) 50 mg PO TID PRN PRN Reason: Moderate Pain (4-6)
[2017-07-18] MEDS: Fluticasone Propionate Nasal Spray 16 gm Bottle NASAL SCH (17:51)
[2017-07-18] MEDS: clonazePAM 0.5 MG TAB PO PRN (18:00)
--- NOTE | 2017-07-18 19:14 | CON ---
DATE OF CONSULTATION: 07/18/2017 CHIEF COMPLAINT: COPD exacerbation. HISTORY OF PRESENT ILLNESS: The patient is a 72-year-old female who has ordinarily followed by my pa rtner, Dr. Rodrigo Wolff. She came to the hospital yesterday because she had a presyncopal type spe ll at home. According to her granddaughter, the patient has had a hard time since about 07/01 when s he had gastrointestinal illness. Previously, she had been very compliant in terms of her breathing t reatments, vest therapy and Trilogy ventilator therapy. I think she has also been poor about taking her medications since that time. Duration of current presyncopal symptoms seem to be about 1 day. There are no exacerbating or allevi ating factors. She is taking no home measures at home to combat the presyncopal symptoms. PAST MEDICAL HISTORY: 1. Severe COPD. 2. Tuberculosis as a child. 3. Lung mass and osteoporosis. 4. Dementia. 5. Kyphoscoliosis. 6. Hypertension. 7. Hyperlipidemia. 8. Anemia. 9. Bladder suspension surgery. 10. Appendectomy. 11. Cataract surgery. 12. Back surgery. 13. Angioplasty. 14. Hyperlipidemia. MEDICATIONS PRIOR TO ADMISSION: Aspirin 81 mg daily, Cardizem 240 mg daily, clonazepam 0.5 mg nightl y, Cozaar 50 mg daily, Crestor 10 mg daily, DuoNeb twice daily, hydrochlorothiazide 12.5 mg daily, La six 40 mg as needed, Advair 250/50 one puff twice daily, prednisone 10 mg daily, potassium chloride 1 0 mEq daily, Flonase nasal spray 1 squirt each nostril daily. Additionally, she used vest therapy 2 to 3 times daily. She also uses a Trilogy ventilator at night. ALLERGIES: DARVON, LISINOPRIL, PENICILLIN, SULFA. SOCIAL HISTORY: Quit smoking more than 10 years ago. Formerly lived in [facility]. Does not consume alcohol, does not use illicit drugs. FAMILY MEDICAL HISTORY: Remarkable for coronary artery disease. REVIEW OF SYSTEMS: A 12-point review of systems is negative other than the shortness of breath, pres yncopal spells and some difficulty with short term memory. PHYSICAL EXAMINATION: VITAL SIGNS: Temperature 98.5, pulse 84, respirations 20, O2 sat 98%, blood pressure 116/67. GENERAL: She is awake and is in no distress. HEENT: Pupils react. Sclerae icteric. Oropharynx clear. NECK: Without adenopathy, JVD, or bruits. LUNGS: She has bilateral expiratory wheezing with no accessory muscle use. CARDIAC: S1, S2 regular, without murmur. ABDOMEN: Soft and nontender. EXTREMITIES: Without clubbing, cyanosis, or edema. Her chest x-ray demonstrates some type of retrocardiac mass on the left since relatively stable isidra red to a film back in March, I am not sure if any CTs have been performed in the past, I will hav e to look at her chart in the office. LABORATORY DATA: White blood cell count 8.4, hematocrit 28.5, platelet count 469. Sodium 137, potas sium 3.8, chloride 93, CO2 of 34, BUN 17, creatinine 0.7, glucose 159. A pH 7.42, pCO2 of 55, pO2 of 88. ASSESSMENT: 1. Chronic hypercapnic respiratory failure. 2. Chronic obstructive pulmonary disease with exacerbation. 3. Dementia. PLAN: Agree with the steroids, nebulization therapy, and antibiotics. The granddaughter expressed s evere concern about the patient's memory loss. This will have to be reassessed in the upcoming days. This may include cutting back on some of her chronic medications.
[2017-07-18] MEDS: Aspirin 81 mg Enteric Coated Tablet PO SCH (20:35)
[2017-07-18] MEDS: Doxycycline 100 MG CAP PO SCH (20:35)
[2017-07-18] MEDS: Losartan Potassium 25 MG TAB PO SCH (20:35)
[2017-07-19] MEDS: Sodium Chloride 0.9% 1,000 ML IV SCH (05:54)
--- NOTE | 2017-07-19 09:44 | PDOC.PULPN ---
Progress Note: Subj/Obj - Subjective Date: 07/19/17 Time: 09:43 Subjective: Feels better. Breathing OK. - ROS Respiratory: no reported symptoms - Objective Allergies/Adverse Reactions: Allergies Allergy/AdvReac Type Severity Reaction Status Date / Time lisinopril Allergy Verified 07/17/17 17:04 Penicillins Allergy Verified 07/17/17 17:03 propoxyphene [From Darvon] Allergy Verified 07/17/17 17:04 Sulfa (Sulfonamide Allergy Verified 07/17/17 17:04 Antibiotics) Medications: Current Medications Acetaminophen (Tylenol) 650 mg PO Q4H PRN PRN Reason: Headache/Fever or Pain Last Admin: 07/18/17 09:34 Dose: 650 mg Albuterol/Ipratropium (Duoneb) 3 ml NEB [id number] [facility] Last Admin: 07/19/17 07:33 Dose: 3 ml Aspirin (Ecotrin) 81 mg PO 2100 [facility] Last Admin: 07/18/17 20:35 Dose: 81 mg Clonazepam (Klonopin) 0.5 mg PO TID PRN PRN Reason: Anxiety/Agitation Last Admin: 07/18/17 18:00 Dose: 0.5 mg Diltiazem HCl (Cardizem Cd) 240 mg PO 2100 [facility] Last Admin: 07/18/17 20:35 Dose: 240 mg Doxycycline Hyclate (Vibramycin) 100 mg PO BID [facility] Last Admin: 07/18/17 20:35 Dose: 100 mg Enoxaparin Sodium (Lovenox) 40 mg SC 0900 [facility] Last Admin: 07/18/17 09:29 Dose: 40 mg Famotidine (Pepcid) 20 mg PO BID [facility] Last Admin: 07/18/17 20:35 Dose: 20 mg Fluticasone Propionate (Flonase Nasal [place]) 0 gm NASAL DAILY [facility] Last Admin: 07/18/17 17:51 Dose: 2 spr Guaifenesin (Mucinex) 600 mg PO Q12HR [facility] Last Admin: 07/18/17 20:35 Dose: 600 mg Guaifenesin/Dextromethorphan (Robitussin Dm) 15 ml PO Q4H PRN PRN Reason: Cough Sodium Chloride (Normal Saline 0.9%) 1,000 mls @ 50 mls/hr IV .Q20H [facility] Last Admin: 07/19/17 05:54 Dose: 1,000 mls Losartan Potassium (Cozaar) 50 mg PO 2100 [facility] Last Admin: 07/18/17 20:35 Dose: 50 mg Methylprednisolone Sodium Succinate (Solu-Medrol) 40 mg IVP Q6HR [facility] Last Admin: 07/19/17 05:54 Dose: 40 mg Ondansetron HCl (Zofran) 4 mg IVP Q6H PRN PRN Reason: Nausea/Vomiting Rosuvastatin Calcium (Crestor) 10 mg PO 2100 [facility] Last Admin: 07/18/17 20:35 Dose: 10 mg Senna (Senokot) 2 tab PO HSPRN PRN PRN Reason: Constipation Tramadol HCl (Ultram) 50 mg PO TID PRN PRN Reason: Moderate Pain (4-6) MAR Reviewed: Yes Vital Signs: Vital Signs Temp 98.3 F 07/19/17 08:00 Pulse 100 07/19/17 08:00 Resp 24 H 07/19/17 08:00 BP 150/72 H 07/19/17 08:00 Pulse Ox 93 L 07/19/17 08:00 Intake & Output 07/18/17 07/19/17 07/19/17 18:59 06:59 18:59 Intake Total 1180 Balance 1180 Intake: Oral 1180 Other: Voiding Method Bedside Commode # Unmeasured Voids 2 # Bowel Movements 2 Progress Note: Exam - Physical Exam Constitutional: NAD HEENT: PERRLA, moist MMs, sclera anicteric Neck: no JVD, supple Cardiovascular: RRR Respiratory: clear to auscultation bilaterally Gastrointestinal: soft, non-tender, positive bowel sounds Musculoskeletal: no edema Neurological: non-focal, normal sensation, moves all 4 limbs Deviation from normal: confused - dementia type Skin: no rash - Labs Result Diagrams: 07/18/17 04:51 07/18/17 04:51 Progress Note: A/P - Problems (1) Acute on chronic respiratory failure with hypoxia and hypercapnia Current Visit: Yes Status: Acute Code(s): J96.21 - ACUTE AND CHRONIC RESPIRATORY FAILURE WITH HYPOXIA; J96.22 - ACUTE AND CHRONIC RESPIRATORY FAILURE WITH HYPERCAPNIA (2) COPD (chronic obstructive pulmonary disease) Current Visit: Yes Status: Acute Qualifiers: COPD type: COPD with acute exacerbation Qualified Code(s): J44.1 - Chronic obstructive pulmonary disease with (acute) exacerbation - Plan Plan: Continue steroids, nebs, abx. She is probably not far from baseline. Continue routine vest and trilogy
[2017-07-19] MEDS: Doxycycline 100 MG CAP PO SCH ×2 (10:03→20:28)
[2017-07-19] MEDS: Enoxaparin Sodium 40 MG/0.4 ML SYRINGE SC SCH (10:03)
[2017-07-19] MEDS: Famotidine 20 MG TAB PO SCH ×2 (10:04→20:28)
[2017-07-19] MEDS: guaiFENesin ER 600 MG TAB PO SCH ×2 (10:04→20:28)
[2017-07-19] MEDS: Fluticasone Propionate Nasal Spray 16 gm Bottle NASAL SCH (10:05)
--- NOTE | 2017-07-19 10:56 | PDOC.PN ---
- Subjective Encounter Start Date: 07/19/17 Encounter Start Time: 08:50 Subjective: breathing better - Objective Resuscitation Status: Resuscitation Status FULL:Full Resuscitation MAR Reviewed: Yes Vital Signs & Weight: Vital Signs (12 hours) Temp Pulse Resp BP Pulse Ox 07/19/17 08:00 98.3 F 100 24 H 150/72 H 93 L 07/19/17 07:35 95 07/19/17 07:33 95 24 H 95 07/19/17 00:21 114 H 16 92 L Weight Admit Weight 149 lb Weight 149 lb I&O: 07/18/17 07/19/17 07/20/17 06:59 06:59 06:59 Intake Total 400 1180 Balance 400 1180 Result Diagrams: 07/18/17 04:51 07/18/17 04:51 Phys Exam - Physical Examination HEENT: PERRLA, sclera anicteric Neck: no JVD, supple Respiratory: no wheezing, no rales rhonchi+ Cardiovascular: RRR, no significant murmur Gastrointestinal: soft, non-tender, positive bowel sounds Musculoskeletal: no edema, pulses present Neurological: non-focal, moves all 4 limbs Psychiatric: A&O x 3 Dx/Plan (1) COPD (chronic obstructive pulmonary disease) Status: Acute Qualifiers: COPD type: COPD with acute exacerbation Qualified Code(s): J44.1 - Chronic obstructive pulmonary disease with (acute) exacerbation (2) Anemia, normocytic normochromic Code(s): D64.9 - ANEMIA, UNSPECIFIED Status: Chronic (3) Anxiety and depression Code(s): F41.8 - OTHER SPECIFIED ANXIETY DISORDERS Status: Chronic (4) Dementia Code(s): F03.90 - UNSPECIFIED DEMENTIA WITHOUT BEHAVIORAL DISTURBANCE Status: Chronic Qualifiers: Dementia type: unspecified type Dementia behavioral disturbance: without behavioral disturbance Qualified Code(s): F03.90 - Unspecified dementia without behavioral disturbance (5) Dyslipidemia Code(s): E78.5 - HYPERLIPIDEMIA, UNSPECIFIED Status: Chronic (6) Hypertension Code(s): I10 - ESSENTIAL (PRIMARY) HYPERTENSION Status: Chronic Qualifiers: Hypertension type: essential hypertension Qualified Code(s): I10 - Essential (primary) hypertension (7) Osteoporosis Code(s): M81.0 - AGE-RELATED OSTEOPOROSIS W/O CURRENT PATHOLOGICAL FRACTURE Status: Chronic Qualifiers: Osteoporosis type: unspecified - Plan is on solumedrol, duonebs -: empiric doxy -: is improving -: on trilogy vent and vent therapy per pulm service -: to amb in hallway as tolerated * . Review of Systems - Medications/Allergies Allergies/Adverse Reactions: Allergies Allergy/AdvReac Type Severity Reaction Status Date / Time lisinopril Allergy Verified 07/17/17 17:04 Penicillins Allergy Verified 07/17/17 17:03 propoxyphene [From Darvon] Allergy Verified 07/17/17 17:04 Sulfa (Sulfonamide Allergy Verified 07/17/17 17:04 Antibiotics) Medications: Current Medications Acetaminophen (Tylenol) 650 mg PO Q4H PRN PRN Reason: Headache/Fever or Pain Last Admin: 07/18/17 09:34 Dose: 650 mg Albuterol/Ipratropium (Duoneb) 3 ml NEB [id number] [facility] Last Admin: 07/19/17 07:33 Dose: 3 ml Aspirin (Ecotrin) 81 mg PO 2100 [facility] Last Admin: 07/18/17 20:35 Dose: 81 mg Clonazepam (Klonopin) 0.5 mg PO TID PRN PRN Reason: Anxiety/Agitation Last Admin: 07/18/17 18:00 Dose: 0.5 mg Diltiazem HCl (Cardizem Cd) 240 mg PO 2100 [facility] Last Admin: 07/18/17 20:35 Dose: 240 mg Doxycycline Hyclate (Vibramycin) 100 mg PO BID [facility] Last Admin: 07/19/17 10:03 Dose: 100 mg Enoxaparin Sodium (Lovenox) 40 mg SC 0900 [facility] Last Admin: 07/19/17 10:03 Dose: 40 mg Famotidine (Pepcid) 20 mg PO BID [facility] Last Admin: 07/19/17 10:04 Dose: 20 mg Fluticasone Propionate (Flonase Nasal [place]) 0 gm NASAL DAILY [facility] Last Admin: 07/19/17 10:05 Dose: 2 spr Guaifenesin (Mucinex) 600 mg PO Q12HR [facility] Last Admin: 07/19/17 10:04 Dose: 600 mg Guaifenesin/Dextromethorphan (Robitussin Dm) 15 ml PO Q4H PRN PRN Reason: Cough Sodium Chloride (Normal Saline 0.9%) 1,000 mls @ 50 mls/hr IV .Q20H [facility] Last Admin: 07/19/17 05:54 Dose: 1,000 mls Losartan Potassium (Cozaar) 50 mg PO 2100 [facility] Last Admin: 07/18/17 20:35 Dose: 50 mg Methylprednisolone Sodium Succinate (Solu-Medrol) 40 mg IVP Q6HR [facility] Last Admin: 07/19/17 05:54 Dose: 40 mg Ondansetron HCl (Zofran) 4 mg IVP Q6H PRN PRN Reason: Nausea/Vomiting Rosuvastatin Calcium (Crestor) 10 mg PO 2100 [facility] Last Admin: 07/18/17 20:35 Dose: 10 mg Senna (Senokot) 2 tab PO HSPRN PRN PRN Reason: Constipation Tramadol HCl (Ultram) 50 mg PO TID PRN PRN Reason: Moderate Pain (4-6)
[2017-07-19 18:58] VITALS: TEMP 98.3
[2017-07-19] MEDS: Sodium Chloride 3% (15 ML) NEB NEB SCH (19:53)
[2017-07-19] MEDS: Losartan Potassium 25 MG TAB PO SCH (20:28)
[2017-07-19] MEDS: Aspirin 81 mg Enteric Coated Tablet PO SCH (20:29)
[2017-07-20] MEDS: clonazePAM 0.5 MG TAB PO PRN (01:21)
[2017-07-20] MEDS: Sodium Chloride 0.9% 1,000 ML IV SCH ×2 (04:30→05:03)
[2017-07-20] MEDS: Sodium Chloride 3% (15 ML) NEB NEB SCH (07:54)
[2017-07-20] MEDS: Doxycycline 100 MG CAP PO SCH (09:27)
[2017-07-20] MEDS: Enoxaparin Sodium 40 MG/0.4 ML SYRINGE SC SCH (09:28)
[2017-07-20] MEDS: Famotidine 20 MG TAB PO SCH (09:28)
[2017-07-20] MEDS: Fluticasone Propionate Nasal Spray 16 gm Bottle NASAL SCH (09:28)
[2017-07-20] MEDS: guaiFENesin ER 600 MG TAB PO SCH (09:28)
--- NOTE | 2017-07-20 11:11 | PDOC.PN ---
- Subjective Encounter Start Date: 07/20/17 Encounter Start Time: 08:40 Subjective: breathing better, no sob -: is amb in room - Objective Resuscitation Status: Resuscitation Status FULL:Full Resuscitation MAR Reviewed: Yes Vital Signs & Weight: Vital Signs (12 hours) Temp Pulse Resp BP Pulse Ox 07/20/17 08:00 98.3 F 79 24 H 151/68 H 94 L 07/20/17 07:52 79 16 94 L 07/20/17 00:53 97 16 Weight Admit Weight 149 lb Weight 149 lb I&O: 07/19/17 07/20/17 07/21/17 06:59 06:59 06:59 Intake Total 1180 Balance 1180 Result Diagrams: 07/18/17 04:51 07/18/17 04:51 Phys Exam - Physical Examination HEENT: PERRLA, moist MMs Neck: no JVD, supple Respiratory: no wheezing, no rales Cardiovascular: RRR, no significant murmur Gastrointestinal: soft, non-tender, positive bowel sounds Musculoskeletal: no edema, pulses present Neurological: non-focal, moves all 4 limbs Psychiatric: A&O x 3 Dx/Plan (1) COPD (chronic obstructive pulmonary disease) Status: Acute Qualifiers: COPD type: COPD with acute exacerbation Qualified Code(s): J44.1 - Chronic obstructive pulmonary disease with (acute) exacerbation (2) Anemia, normocytic normochromic Code(s): D64.9 - ANEMIA, UNSPECIFIED Status: Chronic (3) Anxiety and depression Code(s): F41.8 - OTHER SPECIFIED ANXIETY DISORDERS Status: Chronic (4) Dementia Code(s): F03.90 - UNSPECIFIED DEMENTIA WITHOUT BEHAVIORAL DISTURBANCE Status: Chronic Qualifiers: Dementia type: unspecified type Dementia behavioral disturbance: without behavioral disturbance Qualified Code(s): F03.90 - Unspecified dementia without behavioral disturbance (5) Dyslipidemia Code(s): E78.5 - HYPERLIPIDEMIA, UNSPECIFIED Status: Chronic (6) Hypertension Code(s): I10 - ESSENTIAL (PRIMARY) HYPERTENSION Status: Chronic Qualifiers: Hypertension type: essential hypertension Qualified Code(s): I10 - Essential (primary) hypertension (7) Osteoporosis Code(s): M81.0 - AGE-RELATED OSTEOPOROSIS W/O CURRENT PATHOLOGICAL FRACTURE Status: Chronic Qualifiers: Osteoporosis type: unspecified - Plan hemostable -: may dc home if cleared by -: steroid taper, nebs -: has end stage copd and is on trilogy vent at home * . Review of Systems - Medications/Allergies Allergies/Adverse Reactions: Allergies Allergy/AdvReac Type Severity Reaction Status Date / Time lisinopril Allergy Verified 07/17/17 17:04 Penicillins Allergy Verified 07/17/17 17:03 propoxyphene [From Darvon] Allergy Verified 07/17/17 17:04 Sulfa (Sulfonamide Allergy Verified 07/17/17 17:04 Antibiotics) Medications: Current Medications Acetaminophen (Tylenol) 650 mg PO Q4H PRN PRN Reason: Headache/Fever or Pain Last Admin: 07/18/17 09:34 Dose: 650 mg Albuterol/Ipratropium (Duoneb) 3 ml NEB [id number] [facility] Last Admin: 07/20/17 07:52 Dose: 3 ml Aspirin (Ecotrin) 81 mg PO 2100 [facility] Last Admin: 07/19/17 20:29 Dose: 81 mg Clonazepam (Klonopin) 0.5 mg PO TID PRN PRN Reason: Anxiety/Agitation Last Admin: 07/20/17 01:21 Dose: 0.5 mg Diltiazem HCl (Cardizem Cd) 240 mg PO 2100 [facility] Last Admin: 07/19/17 20:28 Dose: 240 mg Doxycycline Hyclate (Vibramycin) 100 mg PO BID [facility] Last Admin: 07/20/17 09:27 Dose: 100 mg Enoxaparin Sodium (Lovenox) 40 mg SC 0900 [facility] Last Admin: 07/20/17 09:28 Dose: Not Given Famotidine (Pepcid) 20 mg PO BID [facility] Last Admin: 07/20/17 09:28 Dose: 20 mg Fluticasone Propionate (Flonase Nasal [place]) 0 gm NASAL DAILY [facility] Last Admin: 07/20/17 09:28 Dose: 2 spr Guaifenesin (Mucinex) 600 mg PO Q12HR [facility] Last Admin: 07/20/17 09:28 Dose: 600 mg Guaifenesin/Dextromethorphan (Robitussin Dm) 15 ml PO Q4H PRN PRN Reason: Cough Last Admin: 07/20/17 05:12 Dose: 15 ml Losartan Potassium (Cozaar) 50 mg PO 2100 [facility] Last Admin: 07/19/17 20:28 Dose: 50 mg Ondansetron HCl (Zofran) 4 mg IVP Q6H PRN PRN Reason: Nausea/Vomiting Prednisone (Prednisone) 20 mg PO ONE JAQUI Prednisone (Prednisone) 20 mg PO QAM-WM [facility] Rosuvastatin Calcium (Crestor) 10 mg PO 2100 [facility] Last Admin: 07/19/17 20:29 Dose: 10 mg Senna (Senokot) 2 tab PO HSPRN PRN PRN Reason: Constipation Sodium Chloride (Sodium Chloride 3%) 15 ml NEB BID-RT [facility] Last Admin: 07/20/17 07:54 Dose: Not Given Tramadol HCl (Ultram) 50 mg PO TID PRN PRN Reason: Moderate Pain (4-6)
[2017-07-20] MEDS ORDERED: predniSONE 20 MG TAB PO SCH (11:45)
--- NOTE | 2017-07-20 13:49 | PDOC.PULPN ---
Progress Note: Subj/Obj - Subjective Date: 07/20/17 Time: 13:48 Subjective: wants to go home not SOB - ROS Respiratory: no reported symptoms - Objective Allergies/Adverse Reactions: Allergies Allergy/AdvReac Type Severity Reaction Status Date / Time lisinopril Allergy Verified 07/17/17 17:04 Penicillins Allergy Verified 07/17/17 17:03 propoxyphene [From Darvon] Allergy Verified 07/17/17 17:04 Sulfa (Sulfonamide Allergy Verified 07/17/17 17:04 Antibiotics) Medications: Current Medications Acetaminophen (Tylenol) 650 mg PO Q4H PRN PRN Reason: Headache/Fever or Pain Last Admin: 07/18/17 09:34 Dose: 650 mg Albuterol/Ipratropium (Duoneb) 3 ml NEB [id number] [facility] Last Admin: 07/20/17 12:14 Dose: 3 ml Aspirin (Ecotrin) 81 mg PO 2100 [facility] Last Admin: 07/19/17 20:29 Dose: 81 mg Clonazepam (Klonopin) 0.5 mg PO TID PRN PRN Reason: Anxiety/Agitation Last Admin: 07/20/17 01:21 Dose: 0.5 mg Diltiazem HCl (Cardizem Cd) 240 mg PO 2100 [facility] Last Admin: 07/19/17 20:28 Dose: 240 mg Doxycycline Hyclate (Vibramycin) 100 mg PO BID [facility] Last Admin: 07/20/17 09:27 Dose: 100 mg Enoxaparin Sodium (Lovenox) 40 mg SC 0900 [facility] Last Admin: 07/20/17 09:28 Dose: Not Given Famotidine (Pepcid) 20 mg PO BID [facility] Last Admin: 07/20/17 09:28 Dose: 20 mg Fluticasone Propionate (Flonase Nasal [place]) 0 gm NASAL DAILY [facility] Last Admin: 07/20/17 09:28 Dose: 2 spr Guaifenesin (Mucinex) 600 mg PO Q12HR [facility] Last Admin: 07/20/17 09:28 Dose: 600 mg Guaifenesin/Dextromethorphan (Robitussin Dm) 15 ml PO Q4H PRN PRN Reason: Cough Last Admin: 07/20/17 05:12 Dose: 15 ml Losartan Potassium (Cozaar) 50 mg PO 2100 [facility] Last Admin: 07/19/17 20:28 Dose: 50 mg Ondansetron HCl (Zofran) 4 mg IVP Q6H PRN PRN Reason: Nausea/Vomiting Prednisone (Prednisone) 20 mg PO QAM-WM [facility] Rosuvastatin Calcium (Crestor) 10 mg PO 2100 [facility] Last Admin: 07/19/17 20:29 Dose: 10 mg Senna (Senokot) 2 tab PO HSPRN PRN PRN Reason: Constipation Sodium Chloride (Sodium Chloride 3%) 15 ml NEB BID-RT [facility] Last Admin: 07/20/17 07:54 Dose: Not Given Tramadol HCl (Ultram) 50 mg PO TID PRN PRN Reason: Moderate Pain (4-6) MAR Reviewed: Yes Vital Signs: Vital Signs Temp 98.3 F 07/20/17 08:00 Pulse 86 07/20/17 12:14 Resp 20 07/20/17 12:14 BP 151/68 H 07/20/17 08:00 Pulse Ox 94 L 07/20/17 12:14 Intake & Output 07/19/17 07/20/17 07/20/17 18:59 06:59 18:59 Weight 149 lb Other: Voiding Method Bedside Commode Bedside Commode # Urine Diapers 2 Progress Note: Exam - Physical Exam Constitutional: NAD HEENT: PERRLA, sclera anicteric Neck: no nodes, no JVD Cardiovascular: RRR Focused Respiratory Location: wheezes: Left (mild exp wheeze on left) Gastrointestinal: soft, non-tender Musculoskeletal: no edema Neurological: non-focal Lymphatic: no nodes Psychiatric: normal affect, A&O x 3 Skin: no rash - Labs Result Diagrams: 07/18/17 04:51 07/18/17 04:51 Progress Note: A/P - Problems (1) Acute on chronic respiratory failure with hypoxia and hypercapnia Current Visit: Yes Status: Acute Code(s): J96.21 - ACUTE AND CHRONIC RESPIRATORY FAILURE WITH HYPOXIA; J96.22 - ACUTE AND CHRONIC RESPIRATORY FAILURE WITH HYPERCAPNIA (2) COPD (chronic obstructive pulmonary disease) Current Visit: Yes Status: Acute Qualifiers: COPD type: COPD with acute exacerbation Qualified Code(s): J44.1 - Chronic obstructive pulmonary disease with (acute) exacerbation - Time Spent with Patient Time: 50% of the time was spent in coordination of care (as documented) at patient's floor/unit and/or counseling patient. - Plan Plan: ok to dc home anytime 7 days total abx steroid taper over 2 weeks f/u Dr. Wolff in 1 month
[2017-07-20 15:07] VITALS: BP 144/71
--- NOTE | 2017-07-21 04:23 | DIS ---
DATE OF ADMISSION: 07/17/2017 DATE OF DISCHARGE: 07/20/2017 DISCHARGE DISPOSITION: To home. PRIMARY DISCHARGE DIAGNOSES: Chronic obstructive pulmonary disease exacerbation, resolving; history of end-stage chronic obstructive pulmonary disease; chronic anemia; dementia; anxiety; depression; dy slipidemia; and osteoporosis. PROCEDURES DONE DURING HOSPITALIZATION: Chest x-ray done showed no acute infiltrate. Blood cultures x2, no growth. Influenza A and B antigens were negative. Had a white count of 15 with 86% neutroph ils on the day of admission, discharge white count of 8. Blood gas in ER showed a pH of 7.42, pCO2 o f 55, pO2 of 88. BNP was 15. DISCHARGE MEDICATIONS: Aspirin 81 mg p.o. daily, clonazepam 0.25 mg p.o. twice daily, Cardizem CD 24 0 mg p.o. q.p.m., Colace 100 mg p.o. daily, doxycycline 100 mg p.o. twice daily for 1 week, Nexium 40 mg p.o. daily, Advair Diskus inhaler twice daily, hydrochlorothiazide 12.5 mg p.o. daily, DuoNebs q. 6 hourly, Cozaar 50 mg p.o. at bedtime, prednisone 20 mg p.o. daily for 10 days then to continue her home dose of 10 mg daily, and Crestor 10 mg p.o. q.p.m. ALLERGIES: Allergic to PENICILLIN, LISINOPRIL, SULFA, and PROPOXYPHENE. DISCHARGE PLAN: The patient to follow up with Dr. Wolff in 4 weeks and primary care physician in 1 week. BRIEF COURSE DURING HOSPITALIZATION: The patient initially got admitted with complaints of shortness of breath and increased lethargy. She also had low-grade fever apparently at home. She was [facility] admitted for COPD exacerbation. The patient has end-stage COPD and is steroid-dependent. She i s also on Trilogy ventilator at home. She was placed on IV steroids and empiric antibiotics along wi th nebulization. The patient has responded well to above measures. This morning, she has ambulated nearly 300 feet with physical therapy with oxygen. She is hemodynamically stable and will be shortly discharged home. Please see a [id number] documentation on [facility] for the day of discharge. The patient needs to continue prednisone 20 mg daily for another 10 days and then to continue her home d ose of 10 mg daily thereafter. She is advised to follow up with Dr. Wolff in 4 weeks.
[2017-07-21] MEDS ORDERED: predniSONE 20 MG TAB PO SCH (08:00)
== END 2017-07-20 17:33 | disposition home health service (06) | DRG 190 ==
LOC: ERS 12:06 → T4-B 14:37
PROVIDERS: ADMIT Internal Medicine; ATTEND Internal Medicine
DX: J44.1 Chronic obstructive pulmonary disease with (acute) exacerbation (principal); J96.22 Acute and chronic respiratory failure with hypercapnia; Z99.81 Dependence on supplemental oxygen; D64.9 Anemia, unspecified; F03.90 Unspecified dementia, unspecified severity, without behavioral disturbance, psychotic disturbance, mood disturbance, and anxiety; E78.5 Hyperlipidemia, unspecified; I10 Essential (primary) hypertension; M19.90 Unspecified osteoarthritis, unspecified site; I25.10 Atherosclerotic heart disease of native coronary artery without angina pectoris; F32.9 Major depressive disorder, single episode, unspecified; F41.9 Anxiety disorder, unspecified; M81.0 Age-related osteoporosis without current pathological fracture; Z79.82 Long term (current) use of aspirin; Z87.891 Personal history of nicotine dependence; Z88.6 Allergy status to analgesic agent; Z88.0 Allergy status to penicillin; Z88.2 Allergy status to sulfonamides; Z88.8 Allergy status to other drugs, medicaments and biological substances; Z95.5 Presence of coronary angioplasty implant and graft; Z82.49 Family history of ischemic heart disease and other diseases of the circulatory system
CPT/HCPCS: 36415; 71010; 80048; 80053; 81003; 82553; 82805; 83605; 83690; 83880; 84484; 85025; 85610; 85730; 87040; 87070; 87205; 93005; 94640; 96365; 96367; 96375; G8978-GP-CJ; G8979-GP-CJ; G8980-GP-CJ; J1100; J1650; J1956; J2920; J3475; J7506; J7611; J7620

== ENCOUNTER 2017-08-03 11:30 | Inpatient (IN) | payer MEDICARE ==
[2017-08-03] MEDS ORDERED: Magnesium Sulfate 2 GM/100 ML BAG ONE (11:39)
[2017-08-03 12:08] LABS: #Eosinphils 0.1 thou/uL (0.0-0.7); #Lymphocytes 1.4 thou/uL (1.20-3.40); #Monocytes 0.9 thou/uL (0.11-0.59); #Neutrophils 15.8 thou/uL (1.40-6.50); %Basophils 0.1 % (0.0-1.0); %Eosinophils 0.7 % (0.0-10.0); %Lymphocytes 7.4 % (21.0-51.0); %Monocytes 5.1 % (0.0-10.0); %Neutrophils 86.6 % (42.0-75.0); Hemoglobin 9.8 g/dL (12.0-16.0); Mean Corpuscular HGB CONC 30.6 g/dL (32.0-36.0); Mean Corpuscular Hemoglobin 26.5 pg (27.0-31.0); Mean Corpuscular Volume 86.8 fl (81.0-99.0); Mean Platelet Volume 5.9 fL (7.4-10.4); Platelet Count 382 thou/uL (130-400); RBC Distribution Width 14.6 % (11.5-14.5); White Blood Cell (WBC) Count 18.2 thou/uL (4.8-10.8)
[2017-08-03 12:20] LABS: Base Excess (BEa) 10.1 mEq/L (0 (+/-) 2.5); Calcium, Ionized 1.2 mmol/L (1.12-1.30); Hematocrit-ABG 34.4 % (36.0-47.0); Hemoglobin (Hb) 11.1 g/dL (12.0-16.0); O2 Tension (PaO2) 66.5 mmHg (80.0-100.0); pH, Arterial 7.35 (7.35-7.45)
[2017-08-03 12:21] LABS: Analyzer IN Cardio ER; CO2 Tension 70.8 mmHg (35.0-45.0); Puncture Site L.R.
[2017-08-03 12:29] LABS: ALT (SGPT) 18 U/L (8-55); AST (SGOT) 21 U/L (5-34); Alkaline Phosphatase 59 U/L (40-150); Anion Gap 16 mmol/L (10-20); BUN (Urea Nitrogen) 12 mg/dL (9.8-20.1); Bilirubin, Total 0.5 mg/dL (0.2-1.2); Calc. Creatinine Clearance 0 mL/min (70-130); Carbon Dioxide 32 mmol/L (23-31); Chloride 92 mmol/L (98-107); Estimated GFR-MDRD 76; Globulin 3.1 g/dL (2.4-3.5); Glucose 239 mg/dL (83-110); Potassium 4.6 mmol/L (3.5-5.1); Protein, Total 7.1 g/dL (6.0-8.3); Sodium 135 mmol/L (136-145)
[2017-08-03 12:34] LABS: CKMB 2.5 ng/mL (0-6.6); Troponin I 0.017 ng/mL (< 0.028)
--- NOTE | 2017-08-03 13:03 | RAD ---
CHEST 1 VIEW: Date: 08/03/17 HISTORY: 72-year-old female with dyspnea and shortness of breath. COMPARISON: 07/17/17. FINDINGS: Respiratory tube overlies the chest. Heart size is within normal limits. Status post vertebroplasty c hanges. Increased linear and interstitial markings bilaterally, evidence for chronic lung disease, st able. No confluent pneumonia, overt edema, or pleural effusion. IMPRESSION: Stable chronic lung changes. No confluent pneumonia or other acute process. POS: [facility]
[2017-08-03] MEDS ORDERED: Sodium Chloride 0.45% 1,000 ML IV SCH (13:33)
[2017-08-03] MEDS ORDERED: Ondansetron HCl/PF 4 MG/2 ML Vial IVP PRN ×2 (13:34→15:29)
[2017-08-03] MEDS ORDERED: Acetaminophen 325 MG TAB PO PRN (13:34)
--- NOTE | 2017-08-03 13:43 | CON ---
DATE OF CONSULTATION: 08/03/2017 CONSULTING PHYSICIAN: Hospitalist Group. REASON FOR CONSULTATION: Chronic obstructive pulmonary disease with exacerbation with acute on chron ic respiratory failure. HISTORY OF PRESENT ILLNESS: Ms. Wang is a 72-year-old female who is taken care of by my partner, Dr. Wolff. She was brought to the ER by her granddaughter. Apparently, she has become almost impossib le to take care of at home. She has a home Trilogy ventilator and also has vest therapy at home. Moisés moore frequently takes her oxygen off at home and refuses to comply with the breathing treatments and the Trilogy ventilator. I do not think that there is any new current alleviating factors. She does hav e chronic dry cough and she has constant shortness of breath. PAST MEDICAL HISTORY: 1. Severe COPD. 2. Tuberculosis as a child. 3. Lung mass. 4. Osteoporosis. 5. Dementia. 6. Kyphoscoliosis. 7. Hypertension. 8. Hyperlipidemia. 9. Anemia. 10. Bladder suspension surgery. 11. Appendectomy. 12. Cataract surgery. 13. Back surgery. 14. Angioplasty. HOME MEDICATIONS: Aspirin, Cardizem, clonazepam, Cozaar, Crestor, DuoNeb, hydrochlorothiazide, Lasix , Advair, prednisone, potassium, Flonase. She does have vest therapy 2 to 3 times a day and supposed to use a Trilogy ventilator at night. ALLERGIES: DARVON, LISINOPRIL, PENICILLIN, SULFA. SOCIAL HISTORY: Quit smoking about 10 years ago. Formerly lived in [facility], does not consu me alcohol. FAMILY MEDICAL HISTORY: Remarkable for coronary disease. REVIEW OF SYSTEMS: Twelve point review of systems otherwise negative except for admission in the his tory of present illness. PHYSICAL EXAMINATION: VITAL SIGNS: Blood pressure 120/70, respiratory rate 25 on mechanical ventilation, and pulse 100. GENERAL: She is awake and alert, in no distress. HEENT: Unremarkable. NECK: Without adenopathy or JVD. LUNGS: Clear with distant breath sounds. CARDIAC: S1, S2 regular. ABDOMEN: Soft, nontender. EXTREMITIES: Edematous legs. NEUROLOGIC: She is alert. She is able to move all 4 extremities. LABORATORY DATA: White blood cell count 18.2, hematocrit 32, platelet count 382. A pH 7.35, pCO2 70 , PO2 66 on BiPAP 12/5 with 30% FiO2. Sodium 135, potassium 4.6, chloride 92, CO2 32, BUN 12, creati nine 0.7, glucose 239. Chest x-ray reviewed by myself personally demonstrates chronic interstitial c hanges, normal sized heart. ASSESSMENT: 1. Chronic hypoxic and hypercapnic respiratory failure. 2. Chronic obstructive pulmonary disease. 3. Probably some underlying dementia given her behavior at home. DISCUSSION: I do think we are looking at anything other than continued decompensation of her chronic medical problems. I do not see much hope for her retaining her previous level of functioning. At t he current time, we will keep her on the BiPAP, reinitiate steroids and nebulization treatments. I w ill speak with Dr. Wolff.
[2017-08-03] MEDS ORDERED: Ondansetron ODT 4 MG TAB SL PRN (15:29)
[2017-08-03 15:31] VITALS: BMI 29.5
[2017-08-03] MEDS ORDERED: Ondansetron ODT 4 MG TAB PO PRN (18:17)
[2017-08-03] MEDS ORDERED: Rosuvastatin 10 MG TAB PO SCH (21:00)
[2017-08-03] MEDS ORDERED: Aspirin 81 mg Enteric Coated Tablet PO SCH (21:00)
[2017-08-03] MEDS: clonazePAM 0.5 MG TAB PO SCH (21:10)
[2017-08-03] MEDS: Sodium Chloride 0.9% 1,000 ML IV SCH (21:12)
[2017-08-03] MEDS: Losartan 25 MG TAB PO SCH (21:17)
--- NOTE | 2017-08-03 21:42 | HP ---
Referred to the [facility] Service by [facility] for acute on chronic res piratory failure. PRIMARY CARE PROVIDER: Dr. Malloy. HISTORY OF PRESENT ILLNESS: The patient states she got worse short of breath. O2 saturations were v carlo low at home. She was 80 on 2 liters of O2. When she presented here, she was an oxygen dependent , end-stage COPD patient. She denied any unusual cough, chest pain, fever, sweats, or chills. PAST MEDICAL HISTORY: End-stage COPD with frequent admissions to the hospital, osteoporosis, hyperte nsion, dyslipidemia, chronic anemia. PAST SURGICAL HISTORY: Bladder suspension surgery, appendectomy, cataract surgery, back surgery, cor onary artery disease, post-angioplasty, history of lung mass, depression, anxiety. ALLERGIES: DARVON, LISINOPRIL, PENICILLIN, and SULFA. CURRENT MEDICATIONS: Aspirin 81 mg a day, clonazepam 0.25 mg twice a day, Cardizem-CD 240 a day, Nex ium 40 mg a day, Advair Diskus inhaler twice daily, hydrochlorothiazide 12.5 mg daily, DuoNeb q.6 marianna rs, Cozaar 50 mg p.o. at bedtime, prednisone 10 mg a day, Crestor 10 mg a day. FAMILY HISTORY: Both parents had coronary artery disease. Mother at 72. Father at 48 of acute [place]. SOCIAL HISTORY: [place] moved here from [facility]. Quit smoking more than 10 years ago. Do es not use drugs or alcohol. CODE STATUS: FULL. Her granddaughter with her is the next of kin for decision making. There has ap parently been some friction between them today. REVIEW OF SYSTEMS: General: Remarkably unimpressive. No fever, sweats, chills, headaches, dizzines s. Eyes: No double vision, blurred vision, flashing lights. Ears, Nose, and Throat: No ear pain o r drainage. No nasal bleeding and no trouble swallowing. Cardiac: No chest pain, orthopnea, or par oxysmal nocturnal dyspnea. Respirations: See present illness. Gastrointestinal: No vomiting, no a bdominal pain, no diarrhea. Genitourinary: No hematuria or dysuria. Musculoskeletal: No pain or s welling in her legs. Neurological: No strokes or seizures. Psychiatric: She does have anxiety, de pression. Skin: Easy bruising, no rash. Heme/Lymph: No tender or swollen lymph nodes in her axill ae, inguinal, or cervical area. PHYSICAL EXAMINATION: CURRENT VITAL SIGNS: Blood pressure 150/61, pulse 99, respirations 24-28, temperature 97.8, O2 satur ation 95-100 on BiPAP. HEENT: Examination of her head, eyes, ears, nose, and throat reveal pupils equal, round, and reactiv e to light. Extraocular movements are intact. Sclerae white. Tympanic membranes clear. Nose is cl ear. Oral mucous membranes are wet. NECK: No jugular venous distention, adenopathy, or thyromegaly. CHEST: Markedly diminished breath sounds diffusely with coarse breath sounds and rhonchi, no focal f indings. HEART: Had a regular rate and rhythm. First and second heart sounds were diminished. There are no murmurs, no gallops. ABDOMEN: Soft, bowel sounds are normal. There is no hepatosplenomegaly, no mass, no rebound. EXTREMITIES: Reveal no cyanosis, clubbing, or edema. SKIN: Warm and dry with some ecchymoses on her arm and marked actinic thinning. PULSES: Carotid, radial, femoral pulses intact. Pedal pulses barely palpable. HEME/LYMPH: No tender or swollen lymph nodes in axillae, inguinal, or cervical area. NEUROLOGIC: Cranial nerves II-XII are intact. Moves all extremities. Sensation is intact. GENERAL APPEARANCE: Alert, pleasant, cooperative cushingoid. X-RAY FINDINGS: Chest x-ray, chronic changes compared to old films hyperinflation, no active infiltr ate, no cardiomegaly or CHF, reviewed by me. EKG technically poor tracing with a large amount of art ifact, sinus tachycardia, no other significant abnormality noted, reviewed by me, Dr. Renetta aDn. LABORATORY DATA: White count 18.2, hemoglobin 9.8, platelet count 382,000. Arterial blood gases pCO 2 of 70.8, pO2 of 66.5, pH 7.35. Comprehensive metabolic profile, blood sugar 239, sodium 135, potas sium 4.6, chloride 92, CO2 of 32, otherwise normal. BNP normal. Cardiac enzymes normal. ASSESSMENT: 1. End-stage chronic obstructive pulmonary disease. 2. Steroid, O2 dependent. 3. Acute on chronic respiratory failure with hypercapnia and hypoxemia. 4. Coronary artery disease. 5. Hypertension. 6. Dyslipidemia. PLAN: I have discussed this patient with Dr. Cope, consulting net front end developer. The patient will be placed in the IMCU. DuoNeb will be done 3 mL q.4 hours scheduled, methylprednisolone 20 mg IV q.6 h ours, IV fluids normal saline at 75 mL an hour. Continue diltiazem, Nexium, Crestor, Lovenox 40 mg s ubcu daily for DVT prevention.
[2017-08-04] MEDS: Sodium Chloride 0.9% 1,000 ML IV SCH (05:28)
[2017-08-04 06:11] LABS: #Lymphocytes 0.5 thou/uL (1.20-3.40); #Monocytes 0.2 thou/uL (0.11-0.59); %Eosinophils 0.2 % (0.0-10.0); %Lymphocytes 4.7 % (21.0-51.0); %Monocytes 2.3 % (0.0-10.0); %Neutrophils 92.8 % (42.0-75.0); Mean Corpuscular HGB CONC 29.8 g/dL (32.0-36.0); Mean Corpuscular Hemoglobin 25.7 pg (27.0-31.0); Mean Corpuscular Volume 86.2 fl (81.0-99.0); Mean Platelet Volume 5.8 fL (7.4-10.4); Platelet Count 344 thou/uL (130-400); RBC Distribution Width 14.4 % (11.5-14.5); Red Blood Cell (RBC) Count 3.51 mill/uL (4.20-5.40); White Blood Cell (WBC) Count 9.7 thou/uL (4.8-10.8)
[2017-08-04 06:22] LABS: Anion Gap 15 mmol/L (10-20); BUN (Urea Nitrogen) 11 mg/dL (9.8-20.1); Calc. Creatinine Clearance 80 mL/min (70-130); Calcium 9.8 mg/dL (7.8-10.44); Carbon Dioxide 35 mmol/L (23-31); Chloride 93 mmol/L (98-107); Estimated GFR-MDRD 82; Glucose 197 mg/dL (83-110); Potassium 3.9 mmol/L (3.5-5.1); Sodium 139 mmol/L (136-145)
[2017-08-04] MEDS: Mometasone/Formoterol 120 PUFF INHALER INH SCH ×2 (06:55→19:40)
[2017-08-04] MEDS ORDERED: Enoxaparin Sodium 40 MG/0.4 ML SYRINGE SC SCH (09:00)
[2017-08-04] MEDS: clonazePAM 0.5 MG TAB PO SCH ×2 (09:13→20:34)
--- NOTE | 2017-08-04 09:25 | PDOC.PN ---
- Subjective Encounter Start Date: 08/04/17 Encounter Start Time: 09:23 Subjective: tachypneic, not cooperative with nasal breathing - Objective MAR Reviewed: Yes Vital Signs & Weight: Vital Signs (12 hours) Temp Pulse Resp BP Pulse Ox 08/04/17 07:00 97.1 F L 112 H 20 162/80 H 98 08/04/17 06:55 105 H 16 08/04/17 06:42 99 08/04/17 06:40 105 H 16 08/04/17 04:35 95 08/04/17 04:12 97.6 F 101 H 20 142/57 H 99 08/04/17 02:29 98 19 92 L 08/04/17 00:40 97.9 F 98 20 149/68 H 96 08/03/17 23:40 101 H 26 H 95 Weight Weight 154 lb 4 oz I&O: 08/03/17 08/04/17 08/05/17 06:59 06:59 06:59 Intake Total 1860 Output Total 1100 Balance 760 Result Diagrams: 08/04/17 05:38 08/04/17 05:38 Phys Exam - Physical Examination Neck: no JVD DISTANT BS Cardiovascular: RRR 3/6 sys murmur Dx/Plan (1) Acute on chronic respiratory failure with hypoxia and hypercapnia Code(s): J96.21 - ACUTE AND CHRONIC RESPIRATORY FAILURE WITH HYPOXIA; J96.22 - ACUTE AND CHRONIC RESPIRATORY FAILURE WITH HYPERCAPNIA Status: Acute (2) COPD (chronic obstructive pulmonary disease) Status: Acute Qualifiers: (3) Anemia, normocytic normochromic Code(s): D64.9 - ANEMIA, UNSPECIFIED Status: Chronic (4) Anxiety and depression Code(s): F41.8 - OTHER SPECIFIED ANXIETY DISORDERS Status: Chronic (5) Dyslipidemia Code(s): E78.5 - HYPERLIPIDEMIA, UNSPECIFIED Status: Chronic (6) Hypertension Code(s): I10 - ESSENTIAL (PRIMARY) HYPERTENSION Status: Chronic Qualifiers: (7) Physical deconditioning Code(s): R53.81 - OTHER MALAISE Status: Chronic - Plan echo for cardiaac murmur -: cont nebs, steroids etc -: O2by face mask due to mouth breathing * .
[2017-08-04 09:51] LABS: Hemoglobin A1c 5.8 % (4.0-6.0)
--- NOTE | 2017-08-04 13:47 | PRG ---
DATE OF SERVICE: 08/04/2017 SERVICE: Pulmonary Medicine. INTERVAL HISTORY: The patient is doing okay from a respiratory standpoint. She is breathing comfort ably and talking in full sentences without significant dyspnea with conversation. With exertion, she still gets fairly winded. Otherwise, she is returning to her usual state of health. The biggest is sues that are occurring today are really mostly social. The patient has been more aggressive and bel ligerent. She is refusing to do multiple therapies. She is not taking any of her inhaled medication s as directed. She is not using her physiotherapy as directed, despite the fact they previously prov ided her with excellent benefit. The only thing that she is doing at this point is using her noninva sive ventilation at night and on an as needed basis. She is doing very little for herself. She was going to pulmonary rehabilitation, but discontinued this habit as well, because, despite telling us t hat it initially improved the way that she felt, she felt a little bit more despondent over going. S he recently had a GI illness with 1 day of nausea and vomiting and 2 days of diarrhea. This resolved , but ever since that episode occurred, she has been increasingly agitated. She is getting into fig ts and cursing out the patient's son. Otherwise, there has been no interval change to her respirator y condition. PHYSICAL EXAMINATION: VITAL SIGNS: Afebrile with a T-max of 99.3, pulse 117, blood pressure 149/74, respirations 20, satur ation 97% on 3 liters nasal cannula. GENERAL: The patient is awake and alert, in no apparent distress. LUNGS: Decent air entry. Rhonchi and prolonged expiratory phase are present. Wheezing is also ther e. No crackles. HEART: Normal rate, regular. ABDOMEN: Soft, nontender, nondistended. Bowel sounds are positive. MUSCULOSKELETAL: No cyanosis or clubbing. There is trace to 1+ pitting in the bilateral lower extre mities, limited to the feet. GENITOURINARY: No Parson catheter. NEUROLOGIC: Grossly nonfocal. LABORATORY DATA: WBC 9.7, hemoglobin 9.0, platelets 344,000. PH 7.35, pCO2 of 71, PO2 of 66 on her BiPAP on her home settings. Basic metabolic profile is otherwise unremarkable. Liver function studi es are negative. BNP is 25.9. ASSESSMENT: 1. Acute on chronic hypoxic respiratory failure. 2. Chronic hypercapnic respiratory failure. 3. Chronic obstructive pulmonary disease, with acute exacerbation. 4. Bronchiectasis with exacerbation. PLAN: The patient is doing fine from a respiratory perspective. We will continue our current manage ment. I will give her a dose of Lasix right now, as she does have a minimal volume overload. She is stable for transition to the floor. I will deescalate her antibiotics.
[2017-08-04] MEDS ORDERED: Furosemide 20 MG/2 ML VIAL SLOW IVP SCH (14:00)
[2017-08-04] MEDS: Sodium Chloride 3% (15 ML) NEB NEB SCH (19:38)
[2017-08-04] MEDS: Acetaminophen 325 MG TAB PO PRN (20:33)
[2017-08-04] MEDS: Losartan 25 MG TAB PO SCH (20:33)
[2017-08-05] MEDS: Mometasone/Formoterol 120 PUFF INHALER INH SCH ×2 (07:35→20:06)
[2017-08-05] MEDS: predniSONE 20 MG TAB PO SCH (08:12)
[2017-08-05] MEDS: clonazePAM 0.5 MG TAB PO SCH ×2 (08:14→20:14)
[2017-08-05] MEDS: Furosemide 40 MG TAB PO SCH (08:15)
--- NOTE | 2017-08-05 09:13 | PDOC.PN ---
- Subjective Encounter Start Date: 08/05/17 Encounter Start Time: 09:12 Subjective: alert, talking without sob - Objective MAR Reviewed: Yes Vital Signs & Weight: Vital Signs (12 hours) Temp Pulse Resp BP Pulse Ox 08/05/17 08:00 98.6 F 86 18 100 08/05/17 07:35 118 H 18 08/05/17 07:29 98.6 F 86 18 171/91 H 100 08/05/17 07:27 99 08/05/17 07:25 103 H 12 08/05/17 06:25 92 22 H 159/67 H 99 08/05/17 04:16 98.1 F 92 20 125/69 99 08/05/17 02:39 98 08/05/17 00:16 98.0 F 101 H 22 H 154/76 H 98 08/04/17 22:08 114 H 22 H 139/78 96 Weight Weight 154 lb 5 oz I&O: 08/04/17 08/05/17 08/06/17 06:59 06:59 06:59 Intake Total 1860 410 Output Total 1100 700 Balance 760 -290 Result Diagrams: 08/04/17 05:38 08/04/17 05:38 Phys Exam - Physical Examination Constitutional: NAD Neck: no JVD Respiratory: clear to auscultation bilateral Cardiovascular: RRR, no significant murmur Gastrointestinal: soft, non-tender, positive bowel sounds Musculoskeletal: pulses present, edema present Dx/Plan (1) Acute on chronic respiratory failure with hypoxia and hypercapnia Code(s): J96.21 - ACUTE AND CHRONIC RESPIRATORY FAILURE WITH HYPOXIA; J96.22 - ACUTE AND CHRONIC RESPIRATORY FAILURE WITH HYPERCAPNIA Status: Acute (2) COPD (chronic obstructive pulmonary disease) Status: Acute Qualifiers: (3) Anemia, normocytic normochromic Code(s): D64.9 - ANEMIA, UNSPECIFIED Status: Chronic (4) Anxiety and depression Code(s): F41.8 - OTHER SPECIFIED ANXIETY DISORDERS Status: Chronic (5) Dyslipidemia Code(s): E78.5 - HYPERLIPIDEMIA, UNSPECIFIED Status: Chronic (6) Hypertension Code(s): I10 - ESSENTIAL (PRIMARY) HYPERTENSION Status: Chronic Qualifiers: (7) Physical deconditioning Code(s): R53.81 - OTHER MALAISE Status: Chronic - Plan much improved, cont nebs, steroids, po antibx -: rehab screen for deconditioned state, PT/OT * .
[2017-08-05] MEDS: Sodium Chloride 3% (15 ML) NEB NEB SCH ×2 (11:00→20:06)
--- NOTE | 2017-08-05 15:07 | PRG ---
DATE OF SERVICE: 08/05/2017 SERVICE: Pulmonary Medicine. INTERVAL HISTORY: The patient is doing fine from a respiratory standpoint. She is breathing much better. She is essentially back to baseline. Otherwise, there has been no interval change to her condition. I believe her primary purpose for being in the hospital right now is mostly social. PHYSICAL EXAMINATION: VITAL SIGNS: Afebrile, currently with a T-max of 99.5, pulse 18, pulse 121, blood pressure 151/74, respirations 18 and saturation 95% on 4 liters nasal cannula. GENERAL: The patient is awake and alert, in no apparent distress. LUNGS: Poor air entry. There is a prolonged expiratory phase with polyphonic wheezing and rhonchi present. I do not appreciate crackles. HEART: Normal rate and regular. ABDOMEN: Soft, nontender and nondistended. Bowel sounds are positive. MUSCULOSKELETAL: No cyanosis or clubbing. There is no pitting in the bilateral lower extremities. NEUROLOGIC: Grossly nonfocal. ASSESSMENT: 1. Acute on chronic hypoxic respiratory failure. 2. Chronic hypercapnic respiratory failure. 3. Chronic obstructive pulmonary disease with acute exacerbation. 4. Bronchiectasis with exacerbation. PLAN: We will continue our physiotherapy, nebulize medications, and steroids. We will watch her volume status and provide her with p.r.n. doses of Lasix. From my perspective, she is stable for transition out of out of the IMCU to the regular floor. Pulmonary will continue to follow. TERESA
[2017-08-05] MEDS: Acetaminophen 325 MG TAB PO PRN (20:14)
[2017-08-05] MEDS: Losartan 25 MG TAB PO SCH (20:14)
[2017-08-06] MEDS: predniSONE 20 MG TAB PO SCH (07:52)
[2017-08-06] MEDS: Furosemide 40 MG TAB PO SCH (07:53)
[2017-08-06] MEDS: clonazePAM 0.5 MG TAB PO SCH ×2 (07:53→20:34)
[2017-08-06] MEDS: Mometasone/Formoterol 120 PUFF INHALER INH SCH ×2 (08:14→18:42)
[2017-08-06] MEDS: Sodium Chloride 3% (15 ML) NEB NEB SCH ×2 (10:59→18:41)
--- NOTE | 2017-08-06 13:13 | PDOC.PN ---
- Subjective Encounter Start Date: 08/06/17 Encounter Start Time: 13:11 Patient seen at bedside. No overnight events, SOB is less, no C/P. Patient states she's back to her baseline. - Objective MAR Reviewed: Yes Vital Signs & Weight: Vital Signs (12 hours) Temp Pulse Resp BP Pulse Ox 08/06/17 10:54 115 H 24 H 08/06/17 08:42 97.6 F 122 H 24 H 127/69 96 08/06/17 08:14 115 H 20 08/06/17 08:00 97.6 F 122 H 24 H 96 08/06/17 07:52 115 H 20 08/06/17 04:52 97.9 F 93 18 164/89 H 08/06/17 02:24 24 H Weight Weight 154 lb 5 oz I&O: 08/05/17 08/06/17 08/07/17 06:59 06:59 06:59 Intake Total 410 480 Output Total 700 Balance -290 480 Result Diagrams: 08/04/17 05:38 08/04/17 05:38 Additional Labs: Accuchecks 08/06/17 08/05/17 04:55 19:40 POC Glucose 89 176 H Phys Exam - Physical Examination Constitutional: NAD HEENT: moist MMs Neck: no JVD Respiratory: no wheezing Decreased breath sounds bilaterally, no accessory muscle use Cardiovascular: RRR Tachycardia Gastrointestinal: soft Musculoskeletal: pulses present Neurological: moves all 4 limbs Psychiatric: A&O x 3 Skin: normal turgor Dx/Plan (1) Acute on chronic respiratory failure with hypoxia and hypercapnia Code(s): J96.21 - ACUTE AND CHRONIC RESPIRATORY FAILURE WITH HYPOXIA; J96.22 - ACUTE AND CHRONIC RESPIRATORY FAILURE WITH HYPERCAPNIA Status: Acute (2) COPD (chronic obstructive pulmonary disease) Status: Chronic Qualifiers: (3) Dyslipidemia Code(s): E78.5 - HYPERLIPIDEMIA, UNSPECIFIED Status: Chronic (4) Hypertension Code(s): I10 - ESSENTIAL (PRIMARY) HYPERTENSION Status: Chronic Qualifiers: (5) Physical deconditioning Code(s): R53.81 - OTHER MALAISE Status: Chronic - Plan cont current plan of care, PT/OT, manager social, respiratory therapy, DVT proph w/SCDs * Continue with Duonebs. * PO prednisone * Supplemental 02 * OOB as tolerates * Rehab screen
--- NOTE | 2017-08-06 14:04 | PRG ---
DATE OF SERVICE: 08/06/2017 SUBJECTIVE: She said she is feeling better. She is short of breath, no cough. She has tried walk in the [place]. OBJECTIVE: VITAL SIGNS: Blood pressure 127/69, respiratory rate 20, sats 98%, temperature 97. CHEST: Reveals bilateral rhonchi. CARDIAC: Normal S1, S2. No gallops. ABDOMEN: Soft, no masses. IMPRESSION: 1. Obstructive sleep apnea, on CPAP. 2. Chronic obstructive pulmonary disease, bronchitis exacerbation. PLAN: Continue prednisone, Dulera, neb treatments. Hopefully, she can be discharged home in the [facility] t several days, followed by Dr. Wolff.
[2017-08-06] MEDS: Acetaminophen 325 MG TAB PO PRN (20:35)
[2017-08-06] MEDS: Losartan 25 MG TAB PO SCH (20:35)
[2017-08-07] MEDS: Mometasone/Formoterol 120 PUFF INHALER INH SCH (08:09)
[2017-08-07] MEDS: predniSONE 20 MG TAB PO SCH (08:13)
[2017-08-07] MEDS: clonazePAM 0.5 MG TAB PO SCH (08:13)
[2017-08-07] MEDS: Sodium Chloride 3% (15 ML) NEB NEB SCH (10:42)
--- NOTE | 2017-08-07 10:55 | PDOC.PN ---
- Subjective Encounter Start Date: 08/07/17 Encounter Start Time: 10:53 Patient seen at bedside. No overnight events, no new complaints, still feeling weak. - Objective MAR Reviewed: Yes Vital Signs & Weight: Vital Signs (12 hours) Temp Pulse Resp BP Pulse Ox 08/07/17 10:32 109 H 22 H 08/07/17 08:09 118 H 22 H 08/07/17 08:00 98.8 F 118 H 28 H 92 L 08/07/17 07:58 97 08/07/17 07:56 118 H 24 H 08/07/17 07:34 98.8 F 105 H 20 145/72 H 87 L 08/07/17 02:26 20 Weight Weight 154 lb 5 oz I&O: 08/06/17 08/07/17 08/08/17 06:59 06:59 06:59 Intake Total 480 200 Balance 480 200 Result Diagrams: 08/04/17 05:38 08/04/17 05:38 Phys Exam - Physical Examination Constitutional: NAD HEENT: moist MMs Neck: no JVD decreased breath sounds bilaterally, no accessory muscle use Cardiovascular: RRR Gastrointestinal: soft Musculoskeletal: pulses present Neurological: moves all 4 limbs Psychiatric: A&O x 3 Dx/Plan (1) Acute on chronic respiratory failure with hypoxia and hypercapnia Code(s): J96.21 - ACUTE AND CHRONIC RESPIRATORY FAILURE WITH HYPOXIA; J96.22 - ACUTE AND CHRONIC RESPIRATORY FAILURE WITH HYPERCAPNIA Status: Acute (2) COPD (chronic obstructive pulmonary disease) Status: Chronic Qualifiers: (3) Dyslipidemia Code(s): E78.5 - HYPERLIPIDEMIA, UNSPECIFIED Status: Chronic (4) Hypertension Code(s): I10 - ESSENTIAL (PRIMARY) HYPERTENSION Status: Chronic Qualifiers: (5) Physical deconditioning Code(s): R53.81 - OTHER MALAISE Status: Chronic - Plan cont current plan of care, social work msw, respiratory therapy, DVT proph w/ SCDs * Continue with Nebulizer treatments. * Chest physiotherapy * PO Prednisone * OOB as tolerated * CM for disposition (possible rehab placement)
--- NOTE | 2017-08-07 15:44 | PRG ---
DATE OF SERVICE: 08/07/2017 SUBJECTIVE: Patient says she is better. She is less short of breath and less cough. OBJECTIVE: VITAL SIGNS: Blood pressure is 120/80, pulse 100, respirations 20, O2 sat 94% on 2 liters. CHEST: Decreased breath sounds, no wheezing. CARDIAC: Normal S1, S2. ABDOMEN: Soft. No masses. IMPRESSION: Chronic obstructive pulmonary disease and obstructive sleep apnea, stable. She can probably discharged home and increase activity today.
[2017-08-07 16:15] VITALS: BP 147/89; TEMP 98.6
[2017-08-07] MEDS: Acetaminophen 325 MG TAB PO PRN (16:58)
--- NOTE | 2017-08-07 20:28 | DIS ---
DATE OF ADMISSION: 08/03/2017 DATE OF DISCHARGE: 08/07/2017. DISCHARGE DISPOSITION: Inpatient rehabilitation. DISCHARGE FOLLOWUP: With the inpatient rehab physician as well as Dr. Wolff once discharged. DISCHARGE DIAGNOSES: 1. Acute chronic obstructive pulmonary disease exacerbation. 2. Chronic respiratory failure. 3. Obstructive sleep apnea. 4. Hypertension. 5. Dyslipidemia. DISCHARGE MEDICATIONS: 1. Aspirin 81 mg p.o. daily. 2. Clonazepam 0.5 mg p.o. b.i.d. 3. Diltiazem 240 mg p.o. daily. 4. Advair 1 inhalation b.i.d. 5. Hydrochlorothiazide 12.5 mg p.o. daily. 6. DuoNeb p.r.n. 7. Cozaar 50 mg p.o. at bedtime. 8. Prednisone 10 mg p.o. daily. 9. Crestor 10 mg p.o. daily. 10. Tramadol p.r.n. INPATIENT CONSULTATIONS: Dr. Wolff, Pulmonary Critical Care. INPATIENT PROCEDURES: None. INPATIENT RADIOGRAPHIC EXAMINATIONS: 1. Chest x-ray which revealed stable chronic lung changes with no confluent pneumonia or acute proce sses. 2. Echocardiogram, which revealed an EF estimated at 50-55%. There is moderately thickened trileafl et aortic valve with decreased excursion, there is moderate aortic stenosis. BRIEF HOSPITAL COURSE: Ms. Balbina Wang is a 72-year-old female with chronic respiratory failure due to chronic obstructive pulmonary disease who presents to the emergency room complaining of gradual shor tness of breath. The patient was evaluated in the emergency room at which time she was noticed to be tachypneic as well as hypoxic. Blood gas revealed her to be hypercapnic with a pCO2 of 70.8. She w as placed on intravenous steroids, aggressive DuoNeb therapy as well as BiPAP. The patient was monit ored in the Critical Care Unit. Pulmonary Critical Care was consulted and followed along. She was g radually weaned off of BiPAP and subsequently was sent to the medical floor. She did continue to use BiPAP p.r.n. as well as CPAP at night for her obstructive sleep apnea. Her intravenous steroids wer e transitioned to p.o. steroids. She remained on DuoNeb therapy. She reports physically decondition ed in the hospital; hence the rehab consult and screening was requested. She was qualified for rehab ilitation. The patient was transitioned to oral prednisone. She received chest physiotherapy while here twice a day. She is clinically appropriate for discharge today to rehabilitation. She was jorge luis moore by Pulmonary for discharge to rehabilitation. She is doing much better. She is agreeable to the plan of discharge. She will be discharged home later to rehabilitation later today. DISCHARGE DIET: Heart healthy. ACTIVITY: As tolerated. ALLERGIES: LISINOPRIL, PENICILLIN, DARVON, SULFA. CODE STATUS: FULL CODE. DISCHARGE PLAN: The patient is to have chest physiotherapy twice a day. I have explained all this to the patient at bedside. She is agreeable to the plan of discharge. All questions have been answered. Total time required to prepare for discharge 35 minutes.
--- NOTE | 2017-08-16 17:23 | PQF ---
JUNG TAYLOR AKASH M MD [id number] [facility]- B07 [id number] CLINICAL DOCUMENTATION CLARIFICATION FORM: POST DISCHARGE Addendum to original discharge summary date: ____ Late entry note date: __ DATE: 08/16/2016 ATTN: Rajan Browning MD H/P by Dr. Dan shows diagnosis of acute on chronic hypoxic and hypercapnia respiratory failure with 02 sats at 80% on 2L of 02. Patient was placed on BIPAP and was noted be in end stage COPD. ABGs: Ph 7.35, pC02 70.8, and p02 66.5. Per pulmonology (Dr. Wolff) on 08/04 and 08/05: acute on chronic hypoxic respiratory failure and chronic hypercapnia respiratory failure. Discharge Summary Dr. Browning states chronic respiratory failure. Please exercise your independent, professional judgment in responding to the clarification form. Clinical indicators are provided on the bottom of this form for your review Please check appropriate box(s): [ ] Acute Respiratory Failure: [ ] with Hypoxia[ ] with Hypercapnia [ ] Acute On Chronic Respiratory Failure: [ ] with Hypoxia [ ] with Hypercapnia [ ] Acute Respiratory Failure due to: (etiology) [ ] Acute Respiratory Insufficiency following (if applicable): [ ] trauma [ ] surgery [ ] Chronic Respiratory Failure only [ ] with Hypoxia [ ] with Hypercapnia [ ] Hypoxia [ ] Other diagnosis [ ] Unable to determine In addition, please specify: Present on Admission (POA): [ ] Yes [ ] No [ ] Unable to determine For continuity of documentation, please document condition throughout progress notes and discharge summary. Thank You. CLINICAL INDICATORS - SIGNS / SYMPTOMS / LABS ABG pH < 7.35 or > 7.45 Decreased oxygen saturation (<90% room air or < 95% on oxygen). Cyanosis/Hypoxia PCO2 > 50 mm Hg (PCO2 findings of 10-15 mm Hg above the patient's normal level if patient has COPD) PO2 < 60 mm Hg (PCO2 findings of 10-15 mm Hg below the patient's normal level if patient has COPD) Labored or rapid respirations (use of accessory muscles or inability to speak full sentences, air hunger) Pulmonary vascular congestion CXR RISK FACTORS History of home O2 use Recent surgery Chest trauma COPD exacerbation / Asthma CHF exacerbation Tobacco abuse / exposure Pneumonia CVA AMI TREATMENTS: Oxygen Monitoring of oxygenation status Mechanical ventilation / BiPAP Respiratory treatments Serial CXR ABGs Antibiotics IV Bronchodilators Diuresis Pulmonary Consult ICU/Stepdown (This form is maintained as a part of the permanent medical record) 2014 [employer]), [employer]. All Rights Reserved [email or web address] [phone] [email or web address]
--- NOTE | 2017-08-27 14:10 | EKG ---
Test Reason : Blood Pressure : / mmHG Vent. Rate : 116 BPM Atrial Rate : 116 BPM P-R Int : 154 ms QRS Dur : 070 ms QT Int : 312 ms P-R-T Axes : 062 -19 056 degrees QTc Int : 433 ms Sinus tachycardia Possible Left atrial enlargement Borderline ECG Confirmed by ROSE BROOKS, ISABEL ([id number]), editorial director SUSAN MARIO ([id number]) on 08/27/2017 2:09:50 PM Referred By: Confirmed By:ISABEL ROSE MD
== END 2017-08-07 17:13 | DRG 189 ==
LOC: ERS 11:30 → IMCU/EMU 14:38 → T4-B 08-05 15:33
PROVIDERS: ADMIT Internal Medicine; ATTEND Internal Medicine
PROC: 5A09457 Assistance with Respiratory Ventilation, 24-96 Consecutive Hours, Continuous Positive Airway Pressure (ICD-10-PCS; principal; 2017-08-03)
DX: J96.21 Acute and chronic respiratory failure with hypoxia (principal); J44.1 Chronic obstructive pulmonary disease with (acute) exacerbation; J96.22 Acute and chronic respiratory failure with hypercapnia; I25.10 Atherosclerotic heart disease of native coronary artery without angina pectoris; E78.5 Hyperlipidemia, unspecified; G47.33 Obstructive sleep apnea (adult) (pediatric); Z88.5 Allergy status to narcotic agent; Z88.6 Allergy status to analgesic agent; Z88.0 Allergy status to penicillin; Z88.2 Allergy status to sulfonamides; Z88.8 Allergy status to other drugs, medicaments and biological substances; Z87.891 Personal history of nicotine dependence; Z79.82 Long term (current) use of aspirin; Z79.51 Long term (current) use of inhaled steroids; Z82.49 Family history of ischemic heart disease and other diseases of the circulatory system
CPT/HCPCS: 36415; 36416; 71045; 80048; 80053; 82553; 82805; 83036; 83880; 84484; 85025; 93005; 93306; 94640; 94660; 94664; 94667; 94668; 94760; 96361; 96365; G8978-GP-CL; G8979-GP-CJ; G8987-GO-CI; G8988-GO-CI; G8989-GO-CI; J3475; J7506; J7620